=== PATIENT | female | born 1945 | race Caucasian/White ===

== ENCOUNTER 2017-01-08 14:01 | Observation (INO) | payer MEDICARE, MEDICAID ==
[~2017-01-08] VITALS: Ht 167.6 cm; Wt 80.0 kg
[2017-01-08] VITALS (7 sets, daily range): BP systolic 103–127; BP diastolic 52–63; PULSE 52–86; RESP 15–18; TEMP 95.9–98; O2SAT 96–100
[~2017-01-08 14:01] MED LIST: ARIC5TAB PO; BENA20 PO; CYAN100017 PO; HALO1 PO; LORA-392 PO; METF-324 PO; PROBCAP4 PO; QUET25 PO; SERT25TA83 PO; SIMV20 PO; [UNRECOGNIZED DRUG - CODE] IV
[2017-01-08] MEDS ORDERED: LIDOCAINE 1%/EPINEPHrine 1:100,000 SOLN 20 ML VIAL INFIL ONE (14:15)
[2017-01-08] MEDS ORDERED: SODIUM CHLORIDE 0.9% FLUSH 10 ML FLUSH IVF PRN (14:15)
--- NOTE | 2017-01-08 14:25 | PD ---
HPI Chief Complaint: Fall Time Seen by Provider: 14:10 Travel History International Travel<30 days: No Contact w/Intl Traveler<30days: No Traveled to known affect area: No History of Present Illness HPI Patient comes to the emergency department from [facility] [place] after unwitnessed fall per EMS. Patient has a of dementia and when asked why she is here she raises her right middle finger and says "Fuck you" thus limiting H&P. Per EMS patient was cursing most of the way to the hospital. Per EMS patient was walking with a oxygen tank when she fell forwards and this was reported to be unwitnessed. Per EMS one of the workers heard patient fall and found her face down on the ground and incontinent. EMS states when they arrived on scene patient was found to be hypotensive with systolic being in the 80s. This improved after patient received a liter of fluid by EMS. Patient has a history of reported hypotension, osteoarthritis, lack of coordination, hypertension, anxiety, bradycardia, muscle weakness, difficulty walking, depression, dementia , schizoaffective, hyperlipidemia, and diabetes. PFSH Past Medical History Alzheimer's Disease: Yes Arthritis: Yes High Cholesterol: Yes Dementia: Yes Diabetes: Yes Genitourinary: No Hypertension: Yes Musculoskeletal: Yes Neurologic: No Respiratory: No Integumentary: Yes (HX OF CELLULITIS) Sleep Apnea: Yes Social History Alcohol Use: No Tobacco Use: No Substance Use: Yes Allergies-Medications (Allergen,Severity, Reaction): Coded Allergies: No Known Allergies (Verified , 01/15/16) Reported Meds & Prescriptions Reported Meds & Active Scripts Active Ativan (Lorazepam) 0.5 Mg Tab 0.5 Mg PO BID PRN Haldol (Haloperidol) 1 Mg Tab 1 Mg PO BID PRN Quetiapine Fumarate 25 Mg Tab 25 Mg PO BID Ativan 2 Mg Vial/Carpuject (Lorazepam) 2 Mg/Ml Inj 0.5 Mg IV Q8H PRN Probiotic Acidophilus (Acidophilus) Cap 1 Tab PO TIDAC 7 Days Reported B-12 (Cyanocobalamin) 1 000 Cap 1,000 Mcg PO DAILY Lotensin 20 mg (Benazepril HCl) 20 Mg Tab 1 Tab PO DAILY Sertraline 25 mg (Sertraline HCl) 25 Mg Tab 1 Tab PO DAILY Aricept (Donepezil HCl) 5 Mg Tab 10 Mg PO DAILY Glucophage (Metformin HCl) 1,000 Mg Tab 1,000 Mg PO DAILY Zocor (Simvastatin) 20 Mg Tab 20 Mg PO DAILY Review of Systems ROS Limitations: Uncooperative, Poor Historian Except as stated in HPI: all other systems reviewed are Neg Physical Exam Exam Limitations: Poor Historian, Uncooperative Narrative GENERAL: Well-developed, overly nourished, in no acute distress, and non-ill appearing. SKIN: Sutures no right frontal lobe there dry clean intact. No signs of infection. Patient has a laceration over left eyebrow and chin. No foreign body noted. No crepitus. HEAD: Atraumatic. Normocephalic. EYES: Pupils equal and round. EOMI. No scleral icterus. No injection or drainage. ENT: No nasal bleeding or discharge. Patient refuses open her mouth currently this limiting for any oral lacerations or dental fractures. NECK: Trachea midline. C-collar in place. CARDIOVASCULAR: Regular rate and rhythm. No murmur appreciated. RESPIRATORY: No accessory muscle use. No respiratory distress. Clear to auscultation. Breath sounds equal bilaterally. GASTROINTESTINAL: Abdomen soft, non-tender, nondistended, and no guarding. Hepatic and splenic margins not palpable. No pulsatile mass. MUSCULOSKELETAL: No obvious deformities. No clubbing. No cyanosis. No edema. Pelvic stable.Hip: FROM and equal BL with passive flexion, extension, Abduction , Adduction, and internal/external rotation. Dorsal pulses equal BL. NEUROLOGICAL: Awake and alert. No obvious cranial nerve deficits. Normal speech. Data Data Last Documented VS Vital Signs Date Time Temp Pulse Resp B/P (MAP) Pulse Ox O2 Delivery O2 Flow Rate FiO2 01/08/17 17:00 56 15 111/54 (73) 100 Nasal Cannula 2.00 01/08/17 14:05 97.9 Orders Orders Electrocardiogram (01/08/17 14:11) Basic Metabolic Panel (Bmp) (01/08/17 14:11) Complete Blood Count With Diff (01/08/17 14:11) Magnesium (Mg) (01/08/17 14:11) Ckmb (Isoenzyme) Profile (01/08/17 14:11) Troponin I (01/08/17 14:11) Act Partial Throm Time (Ptt) (01/08/17 14:11) Prothrombin Time / Inr (Pt) (01/08/17 14:11) Urinalysis - C+S If Indicated (01/08/17 14:11) Chest, Single Ap (01/08/17 14:11) Ct Brain W/O Iv Contrast(Rout) (01/08/17 14:11) Ct Cerv Spine W/O Contrast (01/08/17 14:11) Ecg Monitoring (01/08/17 14:11) Iv Access Insert/Monitor (01/08/17 14:11) Oximetry (01/08/17 14:11) Sodium Chloride 0.9% Flush (Ns Flush) (01/08/17 14:15) Ct Facial Bones W/O Iv Cont (01/08/17 ) Lidocai-Epi 1%-1:100,000 Inj (Xylocaine- (01/08/17 14:15) Urine Culture (01/08/17 14:23) CKMB (01/08/17 14:20) CKMB% (01/08/17 14:20) Ceftriaxone Inj (Rocephin Inj) (01/08/17 15:15) Lidocai-Epi 2%-1:100,000 Inj (Xylocaine- (01/08/17 15:30) Place In Observation (01/08/17 ) Vital Signs (Adult) Q4H (01/08/17 17:09) Neuro Checks Q4H (01/08/17 17:09) Activity Oob With Assistance (01/08/17 17:09) Bedside Glucose COLLEEN.AC&HS (01/08/17 17:09) Proof Load Mechanic / Telemetry .CONTINUOUS (01/08/17 17:09) Intake + Output COLLEEN.QSHIFT (01/08/17 17:09) Diet 1800 Ada Cons Carb (01/08/17 Dinner) Sodium Chloride 0.9% Flush (Ns Flush) (01/08/17 17:15) Sodium Chloride 0.9% Flush (Ns Flush) (01/08/17 21:00) Basic Metabolic Panel (Bmp) (01/09/17 06:00) Complete Blood Count With Diff (01/09/17 06:00) Resp Oxygen Steve C Titrat 1-4 L (01/08/17 ) Pt Request For Service (01/08/17 17:09) Ot Request For Service (01/08/17 17:09) Speech Therapy Consult-Eval/Tx (01/08/17 17:09) Case Management Consult (01/08/17 17:09) Scd Bilateral/Knee High COLLEEN.BID (01/08/17 17:09) Naloxone Inj (Narcan Inj) (01/08/17 17:15) Docusate Sodium-Senna (Treasure-Colace) (01/08/17 21:00) Magnesium Hydroxide Liq (Milk Of Magnesi (01/08/17 17:15) Sennosides (Senokot) (01/08/17 17:15) Bisacodyl Supp (Dulcolax Supp) (01/08/17 17:15) Lactulose Liq (Lactulose Liq) (01/08/17 17:15) Ceftriaxone Inj (Rocephin Inj) (01/08/17 17:15) Bedside Glucose COLLEEN.AC&HS (01/08/17 17:13) Blood Glucose Goal (Criteria) (01/08/17 17:13) Hypoglycemia 70 Mg/Dl Or < (01/08/17 17:13) Notify Dr: Other (01/08/17 17:13) Dextrose 50% In Олег (Vial) Inj (D50w (Vi (01/08/17 17:15) Glucagon Inj (Glucagon Inj) (01/08/17 17:15) Insulin Aspart Supplemtl Scale (Novolog (01/08/17 21:00) Admit Order (Ed Use Only) (01/08/17 17:31) Labs Laboratory Tests Test 01/08/17 14:20 01/08/17 14:23 White Blood Count 6.8 TH/MM3 Red Blood Count 3.81 MIL/MM3 Hemoglobin 11.9 GM/DL Hematocrit 36.0 % Mean Corpuscular Volume 94.4 FL Mean Corpuscular Hemoglobin 31.2 PG Mean Corpuscular Hemoglobin Concent 33.1 % Red Cell Distribution Width 14.2 % Platelet Count 185 TH/MM3 Mean Platelet Volume 8.4 FL Neutrophils (%) (Auto) 63.1 % Lymphocytes (%) (Auto) 28.5 % Monocytes (%) (Auto) 6.5 % Eosinophils (%) (Auto) 1.6 % Basophils (%) (Auto) 0.3 % Neutrophils # (Auto) 4.3 TH/MM3 Lymphocytes # (Auto) 1.9 TH/MM3 Monocytes # (Auto) 0.4 TH/MM3 Eosinophils # (Auto) 0.1 TH/MM3 Basophils # (Auto) 0.0 TH/MM3 CBC Comment DIFF FINAL Differential Comment Prothrombin Time 11.4 SEC Prothromb Time International Ratio 1.0 RATIO Activated Partial Thromboplast Time 23.5 SEC Blood Urea Nitrogen 21 MG/DL Creatinine 0.86 MG/DL Random Glucose 102 MG/DL Calcium Level 8.0 MG/DL Magnesium Level 1.7 MG/DL Sodium Level 140 MEQ/L Potassium Level 4.3 MEQ/L Chloride Level 104 MEQ/L Carbon Dioxide Level 31.0 MEQ/L Anion Gap 5 MEQ/L Estimat Glomerular Filtration Rate 65 ML/MIN Total Creatine Kinase 104 U/L Creatine Kinase MB 0.8 NG/ML Troponin I LESS THAN 0.02 NG/ML Urine Color YELLOW Urine Turbidity HAZY Urine pH 6.0 Urine Specific [place] 1.027 Urine Protein TRACE mg/dL Urine Glucose (UA) NEG mg/dL Urine Ketones NEG mg/dL Urine Occult Blood TRACE Urine Nitrite NEG Urine Bilirubin NEG Urine Urobilinogen LESS THAN 2.0 MG/DL Urine Leukocyte Esterase LARGE Urine RBC 15 /hpf Urine WBC /hpf Urine Squamous Epithelial Cells 3 /hpf Urine Transitional Epithelial Cells <1 /hpf Urine Amorphous Sediment RARE Urine Bacteria RARE /hpf Urine Hyaline Casts 7 /lpf Urine Mucus FEW /lpf Microscopic Urinalysis Comment CULTURE INDICATED MDM Medical Decision Making Medical Screen Exam Complete: Yes Emergency Medical Condition: Yes Interpretation(s) EKG reviewed by Dr. Guerra shows sinus bradycardia with a ventricular rate 53. Nonspecific ST changes. No STEMI. Chest x-ray read by the radiologist shows: No acute disease. CT head read by the radiologist shows: No acute intracranial injury. CT cervical spine read by the radiologist shows: 1. Degenerative changes as detailed above with areas of neural foraminal narrowing and central canal narrowing. 2. No fracture or dislocation. CT facial bones read by the radiologist shows: No fractures. Differential Diagnosis Syncope, acute coronary syndrome, intracranial hemorrhage, closed head injury, laceration, fracture, electrolyte abnormality, UTI, other Narrative Course Patient was seen and examined. Initial laboratory and radiological studies were ordered. IV access was established. Patient has cardiac monitoring. Patient is reevaluated. Now being more pleasant denies any complaints. Is on uncertain as to why she is here. Discussed the need to repair her laceration and she is okay with this. Explained to the patient that she would be admitted to the hospital. Patient states okay. Dr. Guerra spoke with Dr. Amaya, who is agreeable to admit the patient. Procedures Procedure Narrative LACERATION REPAIR LOCATION: Inferior aspect Chin LENGTH: Approximately 1 cm L-shaped NUMBER OF STITCHES/CAMERON: 1 simple interrupted REPAIR: Verbal consent was obtained. The area of the laceration was cleaned and prepped. The laceration was infiltrated with lidocaine with epi. The wound was copiously irrigated and explored without evidence of foreign body, bony involvement, ligament injury, tendon injury, or neurovascular injury. The wound was closed using 4-0 Vicryl. This was a single layer repair. A sterile dressing was applied by nurse. The patient was advised to keep the affected area as clean and dry as possible using soap and water. There were no complications. Patient tolerated the procedure well. LACERATION REPAIR LOCATION: Left eyebrow LENGTH: Approximately proximally 5 cm in total length cm slightly with Y-shaped and jagged NUMBER OF STITCHES/CAMERON: 7 simple interrupted REPAIR: Verbal consent was obtained. The area of the laceration was cleaned and prepped. The laceration was infiltrated with lidocaine with epi. The wound was copiously irrigated and explored without evidence of foreign body, bony involvement, ligament injury, tendon injury, periosteum involvement, or neurovascular injury. The wound was closed using 4-0 Vicryl. This was a single layer repair. A sterile dressing was applied by nurse. The patient was advised to keep the affected area as clean and dry as possible using soap and water. There were no complications. Patient tolerated the procedure well Diagnosis Primary Impression: Syncope Qualified Codes: R55 - Syncope and collapse Additional Impressions: UTI (urinary tract infection) Qualified Codes: N39.0 - Urinary tract infection, site not specified; R31.9 - Hematuria, unspecified Facial laceration Qualified Codes: S01.81XA - Laceration without foreign body of other part of head, initial encounter Admitting Information Admitting Physician Requests: Observation Condition: Stable Abrahan Glover Jan 08, 2017 14:25
[2017-01-08 14:38] LABS: AUTOMATED NEUTROPHIL # 4.3 TH/MM3 (1.8-7.7); BASOPHIL % 0.3 % (0.0-2.0); EOSINOPHIL # 0.1 TH/MM3 (0-0.4); EOSINOPHIL % 1.6 % (0.0-4.0); HEMO FLAGS DIFF FINAL; LYMPH % 28.5 % (9.0-44.0); LYMPHOCYTE # 1.9 TH/MM3 (1.0-4.8); MEAN CELL VOLUME 94.4 FL (80.0-100.0); MEAN CORPUSCULAR HEMOGLOBIN 31.2 PG (27.0-34.0); MEAN CORPUSCULAR HGB CONC 33.1 % (32.0-36.0); MONO % 6.5 % (0.0-8.0); NEUT % 63.1 % (16.0-70.0); PLATELET COUNT 185 TH/MM3 (150-450); RED BLOOD COUNT 3.81 MIL/MM3 (4.00-5.30); RED CELL DISTRIBUTION WIDTH 14.2 % (11.6-17.2); WHITE BLOOD COUNT 6.8 TH/MM3 (4.0-11.0)
[2017-01-08 14:42] LABS: BACTERIA, URINE RARE /hpf; BLOOD, URINE TRACE (NEG); COMMENT (UR) CULTURE INDICATED; CULTURE IF INDICATED CULTURE INDICATED; GLUCOSE,URINE NEG (NEG); HYALINE CAST, URINE 7 /lpf (RARE); KETONE, URINE NEG (NEG); MUCUS URINE FEW /lpf (OCC); NITRITE,URINE NEG (NEG); SQUAMOUS EPITHELIAL CELL URINE 3 /hpf (0-5); TRANSITIONAL EPI CELLS, URINE <1 /hpf; URINE COLOR YELLOW (YELLW/STRAW)
[2017-01-08 14:45] LABS: APTT (PATIENT) 23.5 SEC (24.3-30.1); PROTHROMBIN TIME - PATIENT 11.4 SEC (9.8-11.6)
[2017-01-08 14:54] LABS: ANION GAP 5 MEQ/L (5-15); BLOOD UREA NITROGEN 21 MG/DL (7-18); CHLORIDE 104 MEQ/L (98-107); GLOMERULAR FILTRATION RATE 65 ML/MIN (>89); MAGNESIUM 1.7 MG/DL (1.5-2.5); POTASSIUM 4.3 MEQ/L (3.5-5.1); SODIUM (NA) 140 MEQ/L (136-145)
[2017-01-08 14:57] LABS: CREATINE KINASE 104 U/L (26-192)
[2017-01-08 15:09] LABS: CKMB 0.8 NG/ML (0.5-3.6)
[2017-01-08] MEDS ORDERED: cefTRIAXone INJ 1,000 MG in SODIUM CHLORIDE 0.9% INJ 100 ML IV ONE (15:15)
[2017-01-08] MEDS ORDERED: LIDOCAINE 2%/EPINEPHrine 1:100,000 20ML MDV NERV BLOCK ONE (15:30)
--- NOTE | 2017-01-08 15:40 | RADRPT ---
EXAM DATE/TIME: 01/08/2017 15:12 [facility] COMPARISON: No previous studies available for comparison. INDICATIONS : Trauma, fall forward today. RADIATION DOSE: 56.35 CTDIvol (mGy) MEDICAL HISTORY : Hypertension. Dementia. diabetes SURGICAL HISTORY : None. ENCOUNTER: Initial ACUITY: 1 day PAIN SCALE: Non-responsive LOCATION: Bilateral head TECHNIQUE: Multiple contiguous axial images were obtained of the head. Using automated exposure control and adj ustment of the mA and/or kV according to patient size, radiation dose was kept as low as reasonably a chievable to obtain optimal diagnostic quality images. DICOM format image data is available electro nically for review and comparison. FINDINGS: There is patchy diminished attenuation in periventricular white matter, most notably in the frontal r egions. No evidence of intracranial mass or hemorrhage. There is nothing to suggest acute infarction. Ventricles are symmetric and normal. A wrap there is left for head scalp swelling and laceration. No evidence of underlying skull fracture. The sinuses and mastoids are clear. CONCLUSION: No acute intracranial injury Keaton Brooks MD on January 08, 2017 at 15:37 Board Certified Radiologist. This report was verified electronically.
--- NOTE | 2017-01-08 15:52 | RADRPT ---
EXAM DATE/TIME: 01/08/2017 14:34 [facility] COMPARISON: No previous studies available for comparison. INDICATIONS : Syncope, fell. MEDICAL HISTORY : None. SURGICAL HISTORY : None. ENCOUNTER: Initial ACUITY: 1 day PAIN SCORE: Non-responsive. LOCATION: Bilateral chest FINDINGS: A single view of the chest demonstrates the lungs to be symmetrically aerated without evidence of mas s, infiltrate or effusion. The cardiomediastinal contours are unremarkable. Osseous structures are intact. CONCLUSION: No acute disease. Bebeto Sloan MD FACR on January 08, 2017 at 15:51 Board Certified Radiologist. This report was verified electronically.
--- NOTE | 2017-01-08 16:07 | RADRPT ---
EXAM DATE/TIME: 01/08/2017 15:12 [facility] COMPARISON: No previous studies available for comparison. INDICATIONS : Trauma, fall forward today. RADIATION DOSE: 26.35 CTDIvol (mGy) MEDICAL HISTORY : hypertension, diabetes, dementia SURGICAL HISTORY : None. ENCOUNTER: Initial ACUITY: 1 day PAIN SCORE: Non-responsive LOCATION: Bilateral face TECHNIQUE: Volumetric scanning of the facial bones was performed. Using automated exposure control and adjustme nt of the mA and/or kV according to patient size, radiation dose was kept as low as reasonably achiev able to obtain optimal diagnostic quality images. DICOM format image data is available [employer] [place] y for review and comparison. FINDINGS: ORBITS: The orbital and infraorbital osseous structures are intact. The retroconal structures have a normal configuration. No radiopaque foreign bodies are seen. NASAL BONE: The nasal bone and maxillary spine are intact ZYGOMATIC ARCHES: Symmetric without evidence of fracture. SINUSES: The maxillary, ethmoid and frontal sinuses are intact. No air-fluid levels seen. NASAL CAVITY: The nasal septum is intact and midline. The lacrimal ducts are intact. SOFT TISSUES: No radiopaque foreign bodies seen. No soft-tissue swelling is seen. INTRACRANIAL: No intracranial air seen. CRIBIFORM PLATE: Grossly intact. CONCLUSION: Negative for fracture. Bebeto Sloan MD FACR on January 08, 2017 at 16:04 Board Certified Radiologist. This report was verified electronically.
--- NOTE | 2017-01-08 16:23 | RADRPT ---
EXAM DATE/TIME: 01/08/2017 15:12 [facility] COMPARISON: No previous studies available for comparison. INDICATIONS : Trauma, fall forward today. RADIATION DOSE: 24.66 CTDIvol (mGy) MEDICAL HISTORY : Hypertension. Dementia. diabetes SURGICAL HISTORY : None. ENCOUNTER: Initial ACUITY: 1 day PAIN SCALE: Non-responsive LOCATION: Bilateral neck TECHNIQUE: Volumetric scanning of the cervical spine was performed. Multiplanar reconstructions in the sagittal, coronal and oblique axial planes were performed. Using automated exposure control and adjustment o f the mA and/or kV according to patient size, radiation dose was kept as low as reasonably achievable to obtain optimal diagnostic quality images. DICOM format image data is available electronically f or review and comparison. FINDINGS: VERTEBRAE: Normal vertebral body height. ALIGNMENT: There is a grade 1 anterolisthesis of C3 on C4. C2-C3: The bony spinal canal is normal in size. No evidence of disc bulge or herniation. The neural forami na are bilaterally patent. Bony uncovertebral hypertrophy more pronounced on the right. C3-C4: There is a broad-based disc osteophyte complex. Prominent bony uncovertebral hypertrophy which is mor e abundant on the left. Narrowing of the left lateral recess. Right lateral recess and central canal are patent. Severe narrowing of the left neural foramen with mild narrowing on the right. C4-C5: Broad-based disc bulge which just touches the ventral portion of the cord. Bony uncovertebral hypertr ophy which is more abundant on the right. Narrowing of the lateral recesses bilaterally. Mild narrowi ng of the right neural foramen. The left is patent. C5-C6: A broad-based disc osteophyte complex with flattening of the ventral portion of the cord and effaceme nt of both lateral recesses. Bony uncovertebral hypertrophy with moderate bilateral neural foraminal narrowing. C6-C7: A broad-based disc osteophyte complex with flattening of the ventral portion of the cord and effaceme nt of both lateral recesses. Bony uncovertebral hypertrophy with moderate bilateral neural foraminal narrowing. C7-T1: The bony spinal canal is normal in size. No evidence of disc bulge or herniation. The neural forami na are bilaterally patent. Calcified plaque involving the carotid arteries bilaterally. CONCLUSION: 1. Degenerative changes as detailed above with areas of neural foraminal narrowing and central canal narrowing. 2. No fracture or dislocation. Carlos Benitez Jr., MD on January 08, 2017 at 16:17 Board Certified Radiologist. This report was verified electronically.
[2017-01-08] MEDS ORDERED: MAGNESIUM HYDROXIDE SUSP 30 ML CUP PO PRN (17:15)
[2017-01-08] MEDS ORDERED: LACTULOSE SYRUP 20 GM/30 ML CUP PO PRN (17:15)
[2017-01-08] MEDS ORDERED: NALOXONE HCL 0.4 MG/ML AMP IV PRN (17:15)
[2017-01-08] MEDS ORDERED: BISACODYL 10 MG SUPP RECTAL PRN (17:15)
[2017-01-08] MEDS ORDERED: SODIUM CHLORIDE 0.9% FLUSH 10 ML FLUSH IV FLUSH PRN (17:15)
[2017-01-08] MEDS ORDERED: DEXTROSE 50% IN WATER 50 ML VIAL(D50) IV PRN (17:15)
[2017-01-08] MEDS ORDERED: GLUCAGON 1 MG/ML VIAL OTHER PRN (17:15)
[2017-01-08] MEDS ORDERED: SENNOSIDES 8.6 MG TAB PO PRN (17:15)
--- NOTE | 2017-01-08 18:11 | HHI.HP ---
[facility] Service [place] [facility] Primary Care Physician Unknown Admission Diagnosis syncope, UTI, facial lacerations Diagnoses: (1) UTI (urinary tract infection) Diagnosis: Principal (2) Syncope Diagnosis: Principal (3) Dementia Diagnosis: Secondary (4) inability to care for self Diagnosis: Secondary Chief Complaint: Syncope Travel History International Travel<30 Days: No Contact w/Intl Traveler <30 Da: No Traveled to Known Affected Are: No History of Present Illness Ms. Ugarte is a 71-year-old female with a known medical history of dementia, dyslipidemia, diabetes and hypertension who presented to the ED via [facility] due to unwitnessed fall. Patient is a poor historian and the history was obtained from medical records and [facility] report. Per ED report patient was supposedly belligerent and agitated with ED medical staff upon arrival and presented with underlying confusion with dementia. Patient sustained an unwitnessed fall while walking with [facility] personnel with apparent syncope and associated incontinence. Supposedly patient was hypotensive on arrival and status post 1L NS bolus with resolution of BP. At this time patient is somnolent while assessed, minimal verbalization and questionable orientation. Patient states her full name but will not verbalize year, place or situation. Apparent facial lacerations noted that have been sutured by ED PACandis CALL at this time. Imaging studies unremarkable. UTI present. EKG done with no ST changes indicating ischemia, sinus bradycardia with HR in the 50's. Patient was found to have urinary tract infection also. Noted to have some sinus bradycardia. We'll get echocardiograms carotids physical therapy and occupational therapy Will need placement back in SNF at discharge Review of Systems ROS Limitations: Altered Mental Status, Poor Historian Past Family Social History Past Medical History Alzhemer's dementia Arthritis Dyslipidemia Type 2 diabetes mellitus Hypertension Sleep Apnea Past Surgical History Unable to obtain information, patient a poor historian, minimal verbalization. Reported Medications Active Ativan (Lorazepam) 0.5 Mg Tab 0.5 Mg PO BID PRN Haldol (Haloperidol) 1 Mg Tab 1 Mg PO BID PRN Quetiapine Fumarate 25 Mg Tab 25 Mg PO BID Ativan 2 Mg Vial/Carpuject (Lorazepam) 2 Mg/Ml Inj 0.5 Mg IV Q8H PRN Probiotic Acidophilus (Acidophilus) Cap 1 Tab PO TIDAC 7 Days Reported B-12 (Cyanocobalamin) 1 000 Cap 1,000 Mcg PO DAILY Lotensin 20 mg (Benazepril HCl) 20 Mg Tab 1 Tab PO DAILY Sertraline 25 mg (Sertraline HCl) 25 Mg Tab 1 Tab PO DAILY Aricept (Donepezil HCl) 5 Mg Tab 10 Mg PO DAILY Glucophage (Metformin HCl) 1,000 Mg Tab 1,000 Mg PO DAILY Zocor (Simvastatin) 20 Mg Tab 20 Mg PO DAILY Allergies: Coded Allergies: No Known Allergies (Verified , 01/15/16) Active Ordered Medications Current Medications Medications (Trade) Dose Ordered Sig/Roland Route Start Time Stop Time Status Last Admin (NS Flush) 2 ml UNSCH PRN IVF 01/08/17 14:15 (NS Flush) 2 ml UNSCH PRN IV FLUSH 01/08/17 17:15 UNV (NS Flush) 2 ml BID IV FLUSH 01/08/17 21:00 UNV (Narcan Inj) 0.4 mg UNSCH PRN IV 01/08/17 17:15 UNV (Treasure-Colace) 1 tab BID PO 01/08/17 21:00 UNV (Milk Of Magnesia Liq) 30 ml Q12H PRN PO 01/08/17 17:15 UNV (Senokot) 17.2 mg Q12H PRN PO 01/08/17 17:15 UNV (Dulcolax Supp) 10 mg DAILY PRN RECTAL 01/08/17 17:15 UNV (Lactulose Liq) 30 ml DAILY PRN PO 01/08/17 17:15 UNV Ceftriaxone Sodium 1000 mg/ Sodium Chloride 100 ml @ 200 mls/hr Q24H IV 01/08/17 17:15 UNV (D50w (Vial) Inj) 50 ml UNSCH PRN IV 01/08/17 17:15 UNV (Glucagon Inj) 1 mg UNSCH PRN OTHER 01/08/17 17:15 UNV (NovoLOG SUPPLEMENTAL SCALE) 1 ACHS SLIDING SCALE SQ 01/08/17 21:00 UNV Family History Unable to obtain information, patient a poor historian, minimal verbalization. Social History Lives at [facility]. Unable to obtain social information, patient a poor historian, minimal verbalization. Physical Exam Vital Signs Vital Signs Date Time Temp Pulse Resp B/P (MAP) Pulse Ox O2 Delivery O2 Flow Rate FiO2 01/08/17 17:00 56 15 111/54 (73) 100 Nasal Cannula 2.00 01/08/17 15:04 62 17 127/63 (84) 99 Nasal Cannula 2.00 01/08/17 14:34 52 17 115/57 (76) 99 Nasal Cannula 2.00 01/08/17 14:05 97.9 86 16 116/59 (78) 97 Physical Exam GENERAL: This is a well-nourished, well-developed patient, lying in bed somnolent, minimal verbalization. SKIN: Multiple facial lacerations above left eye, sutured. Previous right eye laceration, with sutures in place. HEAD: Atraumatic. Normocephalic. No temporal or scalp tenderness. EYES: Pupils equal round and reactive. Extraocular motions intact. No scleral icterus. No injection or drainage. ENT: Nose without bleeding, purulent drainage or septal hematoma. Airway patent. NECK: Trachea midline. No JVD. Supple. CARDIOVASCULAR: Sinus bradycardic. No murmur appreciated. S1 and S2 noted. No S3 or S4. RESPIRATORY: Clear to auscultation. Breath sounds equal bilaterally. No wheezes , rales, or rhonchi. GASTROINTESTINAL: Abdomen soft, non-tender, nondistended. No guarding. Bowel sounds active x 4. MUSCULOSKELETAL: Extremities without clubbing, cyanosis, or edema. No joint tenderness. Bilateral lower extremity edema, 1+. NEUROLOGICAL: Somnolent. Questionable orientation. Motor and sensory grossly within normal limits. Four out of 5 muscle strength in all muscle groups. Minimal verbalization. Laboratory Laboratory Tests Test 01/08/17 14:20 01/08/17 14:23 White Blood Count 6.8 Red Blood Count 3.81 Hemoglobin 11.9 Hematocrit 36.0 Mean Corpuscular Volume 94.4 Mean Corpuscular Hemoglobin 31.2 Mean Corpuscular Hemoglobin Concent 33.1 Red Cell Distribution Width 14.2 Platelet Count 185 Mean Platelet Volume 8.4 Neutrophils (%) (Auto) 63.1 Lymphocytes (%) (Auto) 28.5 Monocytes (%) (Auto) 6.5 Eosinophils (%) (Auto) 1.6 Basophils (%) (Auto) 0.3 Neutrophils # (Auto) 4.3 Lymphocytes # (Auto) 1.9 Monocytes # (Auto) 0.4 Eosinophils # (Auto) 0.1 Basophils # (Auto) 0.0 CBC Comment DIFF FINAL Differential Comment Prothrombin Time 11.4 Prothromb Time International Ratio 1.0 Activated Partial Thromboplast Time 23.5 Blood Urea Nitrogen 21 Creatinine 0.86 Random Glucose 102 Calcium Level 8.0 Magnesium Level 1.7 Sodium Level 140 Potassium Level 4.3 Chloride Level 104 Carbon Dioxide Level 31.0 Anion Gap 5 Estimat Glomerular Filtration Rate 65 Total Creatine Kinase 104 Creatine Kinase MB 0.8 Troponin I LESS THAN 0.02 Urine Color YELLOW Urine Turbidity HAZY Urine pH 6.0 Urine Specific [place] 1.027 Urine Protein TRACE Urine Glucose (UA) NEG Urine Ketones NEG Urine Occult Blood TRACE Urine Nitrite NEG Urine Bilirubin NEG Urine Urobilinogen LESS THAN 2.0 Urine Leukocyte Esterase LARGE Urine RBC 15 Urine WBC Urine Squamous Epithelial Cells 3 Urine Transitional Epithelial Cells <1 Urine Amorphous Sediment RARE Urine Bacteria RARE Urine Hyaline Casts 7 Urine Mucus FEW Microscopic Urinalysis Comment CULTURE INDICATED Date/Time Source Procedure Growth Status 01/08/17 14:23 Urine Random Urine Urine Culture Pending Received Result Diagram: 01/08/17 1420 01/08/17 1420 Imaging Last Impressions Head CT 01/08/171410 Signed Impressions: Service Date/Time: Sunday, January 08, 2017 15:12 - CONCLUSION: No acute intracranial injury Keaton Brooks MD Chest X-Ray 01/08/171410 Signed Impressions: Service Date/Time: Sunday, January 08, 2017 14:34 - CONCLUSION: No acute disease. Bebeto Sloan MD FACR Cervical Spine CT 01/08/17 1411 Signed Impressions: Service Date/Time: Sunday, January 08, 2017 15:12 - CONCLUSION: 1. Degenerative changes as detailed above with areas of neural foraminal narrowing and central canal narrowing. 2. No fracture or dislocation. Carlos Benitez Jr., MD Maxillofacial CT 01/08/17 0000 Signed Impressions: Service Date/Time: Sunday, January 08, 2017 15:12 - CONCLUSION: Negative for fracture. Bebeto Sloan MD FACR Septic Shock Reassessment Lungs: Clear Peripheral Pulses: Bounding Right Radial Bounding Left Radial Bounding Right Popliteal Bounding Left Popliteal Caprini VTE Risk Assessment Caprini VTE Risk Assessment: No/Low Risk (score <= 1) Caprini Risk Assessment Model Point Value = 1 Point Value = 2 Point Value = 3 Point Value = 5 Age 41-60 Minor surgery BMI > 25 kg/m2 Swollen legs Varicose veins or History of unexplained or recurrent spontaneous Oral contraceptives or hormone replacement Sepsis (< 1 month) Serious lung disease, including pneumonia (< 1 month) Abnormal pulmonary function Acute myocardial infarction Congestive heart failure (< 1 month) History of inflammatory bowel disease Medical patient at bed rest Age 61-74 Arthroscopic surgery Major open surgery (> 45 min) Laparoscopic surgery (> 45 min) Malignancy Confined to bed (> 72 hours) Immobilizing plaster cast Central venous access Age >= 75 History of VTE Family history of VTE Factor V Leiden Prothrombin [id number] Lupus anticoagulant Anticardiolipin antibodies Elevated serum homocysteine Heparin-induced thrombocytopenia Other congenital or acquired thrombophilia Stroke (< 1 month) Elective arthroplasty Hip, pelvis, or leg fracture Acute spinal cord injury (< 1 month) Prophylaxis Regimen Total Risk Factor Score Risk Level Prophylaxis Regimen 0-1 Low Early ambulation 2 Moderate Order ONE of the following: *Sequential Compression Device (SCD) *Heparin 5000 units SQ BID 3-4 Higher Order ONE of the following medications: *Heparin 5000 units SQ TID *Enoxaparin/Lovenox 40 mg SQ daily (WT < 150 kg, CrCl > 30 mL/min) *Enoxaparin/Lovenox 30 mg SQ daily (WT < 150 kg, CrCl > 10-29 mL/min) *Enoxaparin/Lovenox 30 mg SQ BID (WT < 150 kg, CrCl > 30 mL/min) AND/OR *Sequential Compression Device (SCD) 5 or more Highest Order ONE of the following medications: *Heparin 5000 units SQ TID (Preferred with Epidurals) *Enoxaparin/Lovenox 40 mg SQ daily (WT < 150 kg, CrCl > 30 mL/min) *Enoxaparin/Lovenox 30 mg SQ daily (WT < 150 kg, CrCl > 10-29 mL/min) *Enoxaparin/Lovenox 30 mg SQ BID (WT < 150 kg, CrCl > 30 mL/min) AND *Sequential Compression Device (SCD) Assessment and Plan Assessment and Plan Ms. Shanel is a 71-year-old female with a known medical history of dementia, dyslipidemia, diabetes and hypertension who presented to the ED via [facility] due to unwitnessed fall. Patient is a poor historian and the history obtained from medical records and [facility] report. At this time patient is somnolent while assessed, minimal verbalization and questionable orientation. Patient states her full name but will not verbalize year, place or situation. Apparent facial lacerations noted that have been sutured by ED PA. VSS at this time. Imaging studies unremarkable. UTI present. EKG done with no ST changes indicating ischemia, sinus bradycardia with HR in the 50's. Syncope Multiple facial lacerations secondary to fall - Maxillofacial CT, head CT, chest x-ray and cervical spine CT all reviewed and unremarkable with degenerative changes noted on cervical spine CT. - EKG reviewed showing sinus bradycardia. Initial troponin flat. - US of bilateral carotids ordered. Follow. - 2-D ECHO ordered and pending. Follow. No previous study found in EMR. - TSH, free T4, hemoglobin A1c and lipid profile ordered. - Continue cardiac telemetry. Patient sinus bradycardic with HR in 50's in ED. - Facial lacerations sutured in ED by PA. - CBC and BMP reviewed and unremarkable. Will repeat in am. Follow. - PT consulted, please evaluate and treat. CM consulted for dc recommendations. Appreciate input. Type 2 diabetes, chronic - ACCU checks ACHS. Sliding scale insulin, cover as needed. Will hold Metformin for now, random glucose 102. Will monitor. Hemoglobin A1c ordered, follow. - [address] ordered, swallow evaluation. Urinary tract infection - UA showing large amount of leukocyte esterase and innumerable WBCs. Urine culture pending. Will follow. For now placed on Rocephin 1 g IV qD. Follow cultures. WBC WNL. Afebrile. - Fallon catheter for now, will reassess mentation in AM. Monitor I&O. Dyslipidemia: Continue home Simvastatin. Hypertension, chronic: Will hold home BP meds for now, initially hypotensive. Monitor BP. Alzheimer's dementia, chronic: Continue home Aricept. DVT Prophylaxis: SCDs. Patient high risk for falls, will hold chemical prophylaxis at this time. The exam, history, and the medical decision-making described in the above note were completed with the assistance of the mid-level provider. I reviewed and agree with the findings presented. I attest that I had a [id number] encounter with the patient on the same day, and personally performed and documented my assessment and findings in the medical record. Code Status FULL CODE Discussed Condition With [facility] ER physician ER nurse and patient Problem Qualifiers (1) UTI (urinary tract infection): Qualified Codes: N39.0 - Urinary tract infection, site not specified; R31.9 - Hematuria, unspecified (2) Syncope: Qualified Codes: R55 - Syncope and collapse Zhanna Cordova [facility] Jan 08, 2017 18:11 Bebeto Amaya DO Jan 08, 2017 18:29
[2017-01-08] MEDS ORDERED: PILL SPLITTER OTHER PRN (19:15)
--- NOTE | 2017-01-08 19:38 | RADRPT ---
EXAM DATE/TIME: 01/08/2017 18:08 [place] COMPARISON: No previous studies available for comparison. INDICATIONS : Syncope. MEDICAL HISTORY : Hypercholesterolemia. Hypertension. Arthritis. Dementia. Sleep apnea. Hyperlipidemia. Bradycardia. An xiety. Osteoarthritis. SURGICAL HISTORY : None. ENCOUNTER: Initial ACUITY: 1 day PAIN SCORE: 0/10 LOCATION: Bilateral neck PEAK SYSTOLIC VELOCITIES (cm/sec): ICA/CCA RATIO: Right: 1.3 Left: 1.4 ICA: Right: 74 Left: 94 CCA: Right: 71 Left: 91 ECA: Right: 141 Left: 68 VERTEBRAL: Right: 46 antegrade Left: 36 antegrade Elevated flow velocities and ICA/CCA ratios have been found to correlate with increased degrees of vessel stenosis, calculated as percentage of diameter relative to a normal segment of distal ICA/CCA FINDINGS: RIGHT CAROTID: There is mild plaque in the carotid bulb regions bilaterally. No significant stenosis is visualized. The waveforms are within normal limits. LEFT CAROTID: There is mild plaque in the carotid bulb regions bilaterally. No significant stenosis is visualized. The waveforms are within normal limits. VERTEBRAL ARTERIES: Antegrade flow is seen in both vertebral arteries. MISCELLANEOUS: None. CONCLUSION: Mild plaque of the carotid bulb regions without a hemodynamically significant stenosis seen. Keaton Mauro MD on January 08, 2017 at 19:35 Board Certified Radiologist. This report was verified electronically.
[2017-01-08 20:49] LABS: FREE T4 0.98 NG/DL (0.76-1.46); HDL CHOLESTEROL 57.8 MG/DL (40.0-60.0); LDL CHOLESTEROL 51 MG/DL (0-99)
[2017-01-08] MEDS: INSULIN ASPART SUPPLEMENTAL SCALE SQ SCH (21:00)
[2017-01-08] MEDS: SODIUM CHLORIDE 0.9% FLUSH 10 ML FLUSH IV FLUSH SCH (22:25)
[2017-01-08] MEDS: QUEtiapine FUMARATE 25 MG TAB PO SCH (22:26)
[2017-01-08] MEDS: DOCUSATE SODIUM 50 MG/SENNA 8.6 MG TAB PO SCH (22:26)
[2017-01-09] VITALS (12 sets, daily range): BP systolic 91–129; BP diastolic 54–67; PULSE 48–67; RESP 14–18; TEMP 96.8–98.5; O2SAT 95–100
[2017-01-09 06:05] LABS: AUTOMATED NEUTROPHIL # 3.5 TH/MM3 (1.8-7.7); BASOPHIL % 0.4 % (0.0-2.0); EOSINOPHIL # 0.1 TH/MM3 (0-0.4); EOSINOPHIL % 2.2 % (0.0-4.0); HEMATOCRIT 34.9 % (35.0-46.0); HEMO FLAGS DIFF FINAL; LYMPH % 32.9 % (9.0-44.0); MEAN CELL VOLUME 94.8 FL (80.0-100.0); MEAN CORPUSCULAR HEMOGLOBIN 30.9 PG (27.0-34.0); MEAN CORPUSCULAR HGB CONC 32.6 % (32.0-36.0); MONO % 7.7 % (0.0-8.0); NEUT % 56.8 % (16.0-70.0); PLATELET COUNT 167 TH/MM3 (150-450); RED BLOOD COUNT 3.68 MIL/MM3 (4.00-5.30); RED CELL DISTRIBUTION WIDTH 13.7 % (11.6-17.2); WHITE BLOOD COUNT 6.2 TH/MM3 (4.0-11.0)
[2017-01-09 06:29] LABS: BICARBONATE 29.4 MEQ/L (21.0-32.0)
[2017-01-09] MEDS: INSULIN ASPART SUPPLEMENTAL SCALE SQ SCH ×4 (07:00→20:48)
--- NOTE | 2017-01-09 09:11 | EKG ---
Date Performed: 01/08/2017 Time Performed: 14:47:40 PTAGE: 71 years EKG: SINUS BRADYCARDIA WITH FIRST DEGREE AV BLOCK ABNORMAL ECG NO PREVIOUS TRACING DOCTOR: Xavier Kumar Interpretating Date/Time 01/09/2017 09:08:59
--- NOTE | 2017-01-09 10:17 | HHI.PR ---
Subjective Remarks Follow-up for fall, syncope. The patient is awake, alert, sitting upright in bed, however non-conversational. She was asked multiple questions however would just stare at me with a blank stare. She did say "ow" when I palpated her legs, then I asked her if my hands were cold and she said "yeah". She would not answer any further questions and would not tell me her name. She followed simple commands such as wiggling toes but would not squeeze hands. Objective Vitals Vital Signs Date Time Temp Pulse Resp B/P (MAP) Pulse Ox O2 Delivery O2 Flow Rate FiO2 01/09/17 08:20 95 Nasal Cannula 2.00 01/09/17 07:55 97.8 57 14 91/54 (66) 96 01/09/17 04:38 96.8 54 18 108/55 (72) 96 01/09/17 04:00 48 01/09/17 02:14 60 01/08/17 23:46 95.9 53 119/57 (77) 96 01/08/17 20:44 98.0 58 18 103/52 (69) 100 01/08/17 19:30 100 Nasal Cannula 2.00 01/08/17 18:50 01/08/17 17:00 56 15 111/54 (73) 100 Nasal Cannula 2.00 01/08/17 15:04 62 17 127/63 (84) 99 Nasal Cannula 2.00 01/08/17 14:34 52 17 115/57 (76) 99 Nasal Cannula 2.00 01/08/17 14:05 97.9 86 16 116/59 (78) 97 I/O 01/08/17 01/08/17 01/08/17 01/09/17 01/09/17 01/09/17 06:59 14:59 22:59 06:59 14:59 22:59 Intake Total 230 ml 100 ml Output Total 550 ml Balance -320 ml 100 ml Intake Oral 230 ml IV Total 100 ml Output Urine Total 550 ml Result Diagram: 01/09/1752201/09/17522 Imaging Last Impressions Head CT 01/08/171 Signed Impressions: Service Date/Time: Sunday, January 08, 2017 15:12 - CONCLUSION: No acute intracranial injury Keaton Brooks MD Chest X-Ray 01/08/17 1411 Signed Impressions: Service Date/Time: Sunday, January 08, 2017 14:34 - CONCLUSION: No acute disease. Bebeto Sloan MD FACR Cervical Spine CT 01/08/17 1411 Signed Impressions: Service Date/Time: Sunday, January 08, 2017 15:12 - CONCLUSION: 1. Degenerative changes as detailed above with areas of neural foraminal narrowing and central canal narrowing. 2. No fracture or dislocation. Carlos Benitez Jr., MD Maxillofacial CT 01/08/17 0000 Signed Impressions: Service Date/Time: Sunday, January 08, 2017 15:12 - CONCLUSION: Negative for fracture. Bebeto Sloan MD FACR Carotid Artery Ultrasound 01/08/17 0000 Signed Impressions: Service Date/Time: Sunday, January 08, 2017 18:08 - CONCLUSION: Mild plaque of the carotid bulb regions without a hemodynamically significant stenosis seen. Keaton Mauro MD Objective Remarks GENERAL: Well-nourished, well-developed patient in NAD. SKIN: Warm and dry. No rash. HEAD: Normocephalic. Atraumatic. Left brow laceration s/p repair with sutures. Chin with laceration s/p repair with suture x1. EYES: Pupils equal and round. No scleral icterus. No injection or drainage. ENT: No nasal bleeding or discharge. Mucous membranes pink and moist. NECK: Supple. Trachea midline. CARDIOVASCULAR: Mildly bradycardic, regular rhythm. S1, S2 noted. No murmur appreciated. RESPIRATORY: No accessory muscle use. Clear to auscultation. Breath sounds equal bilaterally. GASTROINTESTINAL: Abdomen soft, non-tender, nondistended. Normoactive bowel sounds x4. MUSCULOSKELETAL: No obvious deformities. 1+ bilateral lower extremity edema. Calves nontender bilaterally. NEUROLOGICAL: Awake and alert. No obvious cranial nerve deficits. Motor grossly within normal limits. Moving all extremities spontaneously. Unable to clearly assess speech as patient is mostly nonverbal. PSYCHIATRIC: Appropriate mood and affect; insight and judgment poor. Procedures 01/08 - Eyebrow and chin laceration repair in the ED Medications and IVs Current Medications Medications (Trade) Dose Ordered Sig/Roland Route Start Time Stop Time Status Last Admin (NS Flush) 2 ml UNSCH PRN IV FLUSH 01/08/17 17:15 (NS Flush) 2 ml BID IV FLUSH 01/08/17 21:00 01/08/17 22:25 (Narcan Inj) 0.4 mg UNSCH PRN IV 01/08/17 17:15 (Treasure-Colace) 1 tab BID PO 01/08/17 21:00 01/08/17 22:26 (Milk Of Magnesia Liq) 30 ml Q12H PRN PO 01/08/17 17:15 (Senokot) 17.2 mg Q12H PRN PO 01/08/17 17:15 (Dulcolax Supp) 10 mg DAILY PRN RECTAL 01/08/17 17:15 (Lactulose Liq) 30 ml DAILY PRN PO 01/08/17 17:15 Ceftriaxone Sodium 1000 mg/ Sodium Chloride 100 ml @ 200 mls/hr Q24H IV 01/09/17 16:00 (D50w (Vial) Inj) 50 ml UNSCH PRN IV 01/08/17 17:15 (Glucagon Inj) 1 mg UNSCH PRN OTHER 01/08/17 17:15 (NovoLOG SUPPLEMENTAL SCALE) 1 ACHS SLIDING SCALE SQ 01/08/17 21:00 (Aricept) 10 mg DAILY PO 01/09/17 09:00 (SEROquel) 25 mg BID PO 01/08/17 21:00 01/08/17 22:26 (Vitamin B12) 1,000 mcg DAILY PO 01/09/17 09:00 (Lactinex) 1 tab TIDAC PO 01/09/17 08:00 (Zoloft) 25 mg DAILY PO 01/09/17 09:00 (Pravachol) 40 mg DAILY PO 01/09/17 09:00 (Pill Splitter) 1 ea UNSCH PRN OTHER 01/08/17 19:15 (Pneumovax-23 Inj) 25 mcg ONCE ONCE IM 01/10/17 10:00 01/10/17 10:01 A/P Problem List: (1) UTI (urinary tract infection) ICD Code: N39.0 - Urinary tract infection, site not specified (2) Syncope ICD Code: R55 - Syncope and collapse (3) Dementia ICD Code: F03.90 - Unspecified dementia without behavioral disturbance Status: Acute (4) inability to care for self Status: Acute Assessment and Plan 71-year-old female with history of dementia, HTN, HLD, DM, presents via [facility] due to unwitnessed fall. Patient is a poor historian and the history obtained from medical records and EV[facility] report. At this time patient is somnolent while assessed, minimal verbalization and questionable orientation. Facial lacerations noted that have been sutured by ED PA. Imaging studies unremarkable. UTI present. Syncope, Multiple facial lacerations secondary to fall: Suspect secondary to hypotension, BP in 90s/50s. Maxillofacial CT, head CT, CXR and C-spine CT all reviewed and unremarkable with degenerative changes noted on cervical spine CT. EKG reviewed showing sinus bradycardia. Initial troponin flat. TSH, T4, Lipid panel wnl. CBC/BMP unremarkable. - Carotid U/S unremarkable, no significant stenosis - Echocardiogram pending - Check EEG with reported incontinence and unwitnessed fall - Continue cardiac telemetry. Patient sinus bradycardic with HR in 50's. - Facial lacerations sutured in ED by KARYN on 01/08, have removed in ~5days. Clean with NS, apply mupirocin ointment. - PT consulted, patient needs to return to SNF at discharge. Type 2 diabetes, chronic - ACCU checks ACHS. Sliding scale insulin, cover as needed. Hold Metformin for now, random glucose 102. - Hemoglobin A1c pending - [address] ordered, swallow evaluation. Urinary tract infection - UA showing large amount of leukocyte esterase and innumerable WBCs. - Urine culture pending. Will follow. - Continue IV Rocephin - Fallon catheter for now. Monitor I&O. Dyslipidemia: Continue home Simvastatin. Hypertension, chronic: Will hold home BP meds for now, initially hypotensive. Monitor BP. Alzheimer's dementia, chronic: Continue home Aricept. DVT Prophylaxis: SCDs. Patient high risk for falls, will hold chemical prophylaxis at this time. Discharge Planning Discharge pending echo, EEG, and further clinical improvement. Problem Qualifiers (1) UTI (urinary tract infection): Qualified Codes: N39.0 - Urinary tract infection, site not specified; R31.9 - Hematuria, unspecified (2) Syncope: Qualified Codes: R55 - Syncope and collapse Katherine Chandler PA-C Jan 09, 2017 10:17
[2017-01-09] MEDS: DONEPEZIL HCL 5 MG TAB PO SCH (11:06)
[2017-01-09] MEDS: SERTRALINE HCL 50 MG TAB PO SCH (11:06)
[2017-01-09] MEDS: LACTOBACILLUS ACIDOPHILUS TAB PO SCH ×3 (11:06→19:28)
[2017-01-09] MEDS: CYANOCOBALAMIN 1,000 MCG TAB PO SCH (11:06)
[2017-01-09] MEDS: DOCUSATE SODIUM 50 MG/SENNA 8.6 MG TAB PO SCH ×2 (11:06→20:47)
[2017-01-09] MEDS: SODIUM CHLORIDE 0.9% FLUSH 10 ML FLUSH IV FLUSH SCH ×2 (11:06→20:48)
[2017-01-09] MEDS: PRAVASTATIN SOD 40 MG TAB PO SCH (11:06)
[2017-01-09] MEDS: QUEtiapine FUMARATE 25 MG TAB PO SCH ×2 (11:07→20:48)
[2017-01-09 12:36] LABS: HEMOGLOBIN A1b 1.8 %; HEMOGLOBIN Ao 84.6 %; HEMOGLOBIN LA1C 2.1 %; HEMOGLOBIN P3 5.7 %
[2017-01-09] MEDS: MUPIROCIN 2% OINT 22 GM TUBE TOPICAL SCH ×2 (15:06→20:48)
[2017-01-09] MEDS: cefTRIAXone INJ 1,000 MG in SODIUM CHLORIDE 0.9% INJ 100 ML IV SCH (15:06)
--- NOTE | 2017-01-09 15:26 | ECHRPT ---
Indication: SYNCOPE CONCLUSIONS Normal left ventricular size. Wall thickness is normal. The left ventricular systolic function is low normal with an estimated ejection fraction in the rang e of 50- 55%. No regional wall motion abnormalities are present. The right ventricle is mildly dilated. The left atrial size is normal. The right atrial size is normal The interatrial septum not well visualized. Mild mitral valve regurgitation. Aortic valve sclerosis is present. [id number]-[id number] aortic valve regurgitation. No aortic valve stenosis. There is trace tricuspid valve regurgitation. Normal estimated pulmonary pressures. Trivial pulmonary valve regurgitation. The inferior vena cava (IVC) is normal in size. There is less than 50% respiratory change in dimension of the inferior vena cava (abnormal). BP: 91 / 54 HR: 57 Rhythm: Sinus MEASUREMENTS (Male / Female) Normal Values Technical Quality:Fair 2D ECHO LV Diastolic Diameter PLAX 3.9 cm 4.2 - 5.9 / 3.9 - 5.3 cm LV Systolic Diameter PLAX 3.1 cm IVS Diastolic Thickness 0.9 cm 0.6 - 1.0 / 0.6 - 0.9 cm LVPW Diastolic Thickness 1.0 cm 0.6 - 1.0 / 0.6 - 0.9 cm LV Relative Wall Thickness 0.5 LVOT Diameter 2.2 cm Aortic Root Diameter 3.2 cm LA Systolic Diameter LX 3.5 cm 3.0 - 4.0 / 2.7 - 3.8 cm M-MODE AV Cusp Separation MM 2.3 cm DOPPLER AV Peak Velocity 135.0 cm/s AV Peak Gradient 7.3 mmHg AV Mean Gradient 4.0 mmHg AV Velocity Time Integral 32.6 cm AI Peak Velocity 410.0 cm/s AI Peak Gradient 67.2 mmHg AI Pressure Half Time 873.0 ms LVOT Peak Velocity 93.2 cm/s LVOT Peak Gradient 3.5 mmHg LVOT Velocity Time Integral 21.9 cm LVOT Cardiac Index 2435.3 cm/minm AV Area Cont Eq vti 2.6 cm AV Area Cont Eq pk 2.6 cm Mitral E Point Velocity 71.6 cm/s Mitral A Point Velocity 63.2 cm/s Mitral E to A Ratio 1.1 LV E' Lateral Velocity 15.9 cm/s Mitral E to LV E' Lateral Ratio 4.5 LV E' Septal Velocity 7.5 cm/s Mitral E to LV E' Septal Ratio 9.5 TR Peak Velocity 264.0 cm/s TR Peak Gradient 27.9 mmHg PV Peak Velocity 47.4 cm/s PV Peak Gradient 0.9 mmHg FINDINGS LEFT VENTRICLE Normal left ventricular size. Wall thickness is normal. The left ventricular systolic function is low normal with an estimated ejection fraction in the rang e of 50- 55%. No regional wall motion abnormalities are present. Left ventricular diastolic function parameters are normal. RIGHT VENTRICLE The right ventricle is mildly dilated. LEFT ATRIUM The left atrial size is normal. RIGHT ATRIUM The right atrial size is normal. ATRIAL SEPTUM The interatrial septum not well visualized. AORTA The aortic root and proximal ascending aorta are normal in size on limited imaging. MITRAL VALVE Structurally normal mitral valve. Mild mitral valve regurgitation. AORTIC VALVE Trileaflet aortic valve. Aortic valve sclerosis is present. Eyhp-fy-[id number] aortic valve regurgitation. No aortic valve stenosis. TRICUSPID VALVE Structurally normal tricuspid valve. There is trace tricuspid valve regurgitation. Normal estimated pulmonary pressures. PULMONARY VALVE Trivial pulmonary valve regurgitation. VESSELS The inferior vena cava (IVC) is normal in size. There is less than 50% respiratory change in dimension of the inferior vena cava (abnormal). PERICARDIUM No pericardial effusion. Xavier Kumar MD (Electronically Signed) Final Date:09 January 2017 15:26
--- NOTE | 2017-01-09 20:48 | MG ---
cc: SHANI MESSINA MD Lab No: [id number] Date: 01/08/17 Age: 71 Sex: F Race: DATE OF 1945 With photic stimulation. Awake, drowsy, asleep study. CT no acute pathology. Admitted with unwitnessed fall, walking with her oxygen when she fell, found face down on the ground, incontinent, hypotensive. Blood pressure systolic in the 80s. She is a 71-year-old woman with a history of Alzheimer's, arthritis, schizoaffective disorder, some type of respiratory disorder. She is on oxygen. MEDICATIONS Aricept B12 Zoloft Seroquel Pravachol DESCRIPTION OF RECORD There is some mild slowing, 5-6 Hz background. EKG some questionable arrhythmia noted, maybe a PVC on occasion. A lot of artifact, but overall symmetrically slow background, no appreciable epileptiform features. Photic stimulation with a mild driving response seen. IMPRESSION Abnormal EEG due to background slowing likely due to an encephalopathic process but no significant findings in this recording to suggest a seizure or seizure like activity. Clinical correlation. MD RETA Blakely/ /8:14 PM /8:37 PM
[2017-01-10] VITALS (11 sets, daily range): BP systolic 112–145; BP diastolic 59–69; PULSE 50–67; RESP 12–18; TEMP 97.7–98.1; O2SAT 95–97
[2017-01-10] MEDS: INSULIN ASPART SUPPLEMENTAL SCALE SQ SCH (07:00)
[2017-01-10] MEDS ORDERED: PNEUMOCOCCAL POLYVALENT INJ 25 MCG/0.5 ML SYR IM ONE (10:00)
[2017-01-10] MEDS ORDERED: INFLUENZA VIRUS VACCINE (QUADRIVALENT) 0.5 ML SYR IM ONE (10:00)
--- NOTE | 2017-01-10 10:34 | HHI.PR ---
Subjective Remarks Follow-up for fall, syncope. The patient is awake and alert. She is not very cooperative with history. She states that she is fine and she denies any complaints. She does not answer when asked if she is had any problems with urination where she has any pain. Per nursing staff, has been eating well. Objective Vitals Vital Signs Date Time Temp Pulse Resp B/P (MAP) Pulse Ox O2 Delivery O2 Flow Rate FiO2 01/10/17 08:48 97.7 57 18 134/62 (86) 96 01/10/17 08:41 95 21 01/10/17 06:29 98.1 55 14 119/62 (81) 95 01/10/17 04:00 60 01/10/17 00:43 98.1 62 12 114/59 (77) 95 01/10/17 00:00 54 01/09/17 23:08 98.5 60 16 124/67 (86) 96 01/09/17 21:52 97 01/09/17 21:30 66 01/09/17 19:54 98.1 60 14 113/58 (76) 96 01/09/17 15:29 97.5 67 18 121/63 (82) 97 01/09/17 11:39 98.0 60 18 129/58 (81) 100 I/O 01/09/17 01/09/17 01/09/17 01/10/17 01/10/17 01/10/17 07:00 15:00 23:00 07:00 15:00 23:00 Intake Total 230 ml 100 ml Output Total 550 ml 375 ml Balance -320 ml 100 ml -375 ml Intake Oral 230 ml IV Total 100 ml Output Urine Total 550 ml 375 ml Result Diagram: 01/09/17 0501/09/17522 Imaging Last Impressions Head CT 01/08/171410 Signed Impressions: Service Date/Time: Sunday, January 08, 2017 15:12 - CONCLUSION: No acute intracranial injury Keaton Brooks MD Chest X-Ray 01/08/171410 Signed Impressions: Service Date/Time: Sunday, January 08, 2017 14:34 - CONCLUSION: No acute disease. Bebeto Sloan MD FACR Cervical Spine CT 01/08/171410 Signed Impressions: Service Date/Time: Sunday, January 08, 2017 15:12 - CONCLUSION: 1. Degenerative changes as detailed above with areas of neural foraminal narrowing and central canal narrowing. 2. No fracture or dislocation. Carlos Benitez Jr., MD Maxillofacial CT 01/08/17 0000 Signed Impressions: Service Date/Time: Sunday, January 08, 2017 15:12 - CONCLUSION: Negative for fracture. Bebeto Sloan MD FACR Carotid Artery Ultrasound 01/08/17 0000 Signed Impressions: Service Date/Time: Sunday, January 08, 2017 18:08 - CONCLUSION: Mild plaque of the carotid bulb regions without a hemodynamically significant stenosis seen. Keaton Mauro MD Objective Remarks GENERAL: Well-developed well-nourished. In no acute distress. SKIN: Warm and dry. Left brow laceration s/p repair with sutures. Chin with laceration s/p repair with suture x1. HEENT: Normocephalic. Pupils equal and round. Mucous membranes pink and moist. CARDIOVASCULAR: Regular rate and rhythm. No murmur appreciated. RESPIRATORY: No accessory muscle use. Clear to auscultation. Breath sounds equal bilaterally. GASTROINTESTINAL: Abdomen soft, non-tender, nondistended. Bowel sounds x4. MUSCULOSKELETAL: No obvious deformities. No clubbing or cyanosis. No edema. NEUROLOGICAL: Awake and alert. Moves upper and lower extremities spontaneously. Normal speech. PSYCHIATRIC: Calm and Savage of mood and affect; insight and judgment poor. Procedures 01/08 - Eyebrow and chin laceration repair in the ED A/P Problem List: (1) UTI (urinary tract infection) ICD Code: N39.0 - Urinary tract infection, site not specified Status: Acute (2) Syncope ICD Code: R55 - Syncope and collapse Status: Acute (3) Dementia ICD Code: F03.90 - Unspecified dementia without behavioral disturbance Status: Chronic (4) inability to care for self Status: Chronic Assessment and Plan 71-year-old female with history of dementia, HTN, HLD, DM, presents via [facility] due to unwitnessed fall. Patient is a poor historian and the history obtained from medical records and [facility] report. At this time patient is somnolent while assessed, minimal verbalization and questionable orientation. Facial lacerations noted that have been sutured by ED PA. Imaging studies unremarkable. UTI present. Syncope, Multiple facial lacerations secondary to fall: Suspect secondary to hypotension, BP in 90s/50s. Reviewed: Maxillofacial CT, head CT, CXR and C-spine CT unremarkable with degenerative changes noted on cervical spine CT. EKG showed first-degree AV block, rate 53. Troponin wnls. TSH, T4, Lipid panel wnl. CBC/BMP unremarkable. Carotid U/S unremarkable, no significant stenosis. Echocardiogram essentially unremarkable. EEG showed slowing likely due to encephalopathic process, but no seizure activity. - Continue cardiac telemetry. Patient sinus bradycardic with HR in 50's. - Facial lacerations sutured in ED by KARYN on 01/08, have removed in ~5days. Clean with NS, apply mupirocin ointment. - PT consulted, patient needs to return to SNF at discharge. Type 2 diabetes, chronic: Possibly over controlled with hemoglobin A1c 5.6. - Decrease metformin from 1000 to 500 mg daily. Urinary tract infection: Complex. - UA showed large amount of leukocyte esterase and innumerable WBCs. Urine culture growing resistant Morganella. - Continue IV Rocephin - Consult ID for assistance with antibiotics at discharge Dehydration: Creatinine 0.86 and BUN 21 at admission, improved to 0.63 and 14 respectively with IVF. Probably secondary to UTI. Likely contributed to syncope. - Improved. Hypertension, chronic: BP has been soft, possibly contributing to syncope. - Holding home BP meds, may need to discontinue. - BP is currently better controlled. Alzheimer's dementia, chronic: - Continue home Aricept. - Consider decreasing antipsychotics as outpatient with syncope and borderline bradycardia DVT Prophylaxis: SCDs. Patient high risk for falls, will hold chemical prophylaxis at this time. Discharge Planning Monitor BP. Follow up ID recommendations. Will go back to SNF for DC. Problem Qualifiers (1) UTI (urinary tract infection): Qualified Codes: N39.0 - Urinary tract infection, site not specified; R31.9 - Hematuria, unspecified (2) Syncope: Qualified Codes: R55 - Syncope and collapse (3) Dementia: [place] Jan 10, 2017 10:34
[2017-01-10] MEDS: DOCUSATE SODIUM 50 MG/SENNA 8.6 MG TAB PO SCH ×2 (10:37→20:38)
[2017-01-10] MEDS: PRAVASTATIN SOD 40 MG TAB PO SCH (10:37)
[2017-01-10] MEDS: LACTOBACILLUS ACIDOPHILUS TAB PO SCH ×3 (10:37→17:48)
[2017-01-10] MEDS: QUEtiapine FUMARATE 25 MG TAB PO SCH ×2 (10:37→20:38)
[2017-01-10] MEDS: SERTRALINE HCL 50 MG TAB PO SCH (10:38)
[2017-01-10] MEDS: CYANOCOBALAMIN 1,000 MCG TAB PO SCH (10:38)
[2017-01-10] MEDS: SODIUM CHLORIDE 0.9% FLUSH 10 ML FLUSH IV FLUSH SCH ×2 (10:42→20:41)
[2017-01-10] MEDS: DONEPEZIL HCL 5 MG TAB PO SCH (10:42)
[2017-01-10] MEDS: MUPIROCIN 2% OINT 22 GM TUBE TOPICAL SCH ×2 (10:44→20:37)
[2017-01-10] MEDS: cefTRIAXone INJ 1,000 MG in SODIUM CHLORIDE 0.9% INJ 100 ML IV SCH (14:41)
--- NOTE | 2017-01-10 20:52 | MB ---
cc: THELMA REEVES MD DATE OF CONSULTATION 01/10/[address] [place] REASON FOR CONSULTATION Complex UTI. HISTORY OF PRESENT ILLNESS This is a 71-year-old white female who fell and was brought to the emergency department for evaluation. The patient is a resident of [facility] [place]. She has a history of dementia. The patient does not interact but stares at me when I ask her questions. Occasionally she answers yes or no. Information could not be obtained from her and therefore information is obtained from the medical record. The patient had an episode of hypotension which was treated with fluids and improved. She appears to be alert and does not appear to be in any acute distress. She is afebrile. The urinalysis from 01/08 showed large amount of leukocyte esterase and innumerable white cells. Urine culture came back with Morganella 10-15,000 colonies. She has been started on ceftriaxone. She has a Fallon catheter in place and the urine is mostly clear with a little white sediment. White blood cell count is normal. Chest x-ray was performed and showed no acute disease. PAST MEDICAL HISTORY Alzheimer's dementia, arthritis, diabetes mellitus type 2, hypertension, dyslipidemia, sleep apnea. ALLERGIES NO KNOWN DRUG ALLERGIES. MEDICATIONS 1. Ceftriaxone. 2. Aricept. 3. Vitamin B12. 4. Zoloft. 5. Pravachol. 6. Lactinex. 7. Treasure-Colace. 8. Seroquel. SOCIAL HISTORY [facility] resident. No tobacco, alcohol or illicit drugs. FAMILY HISTORY Noncontributory. REVIEW OF SYSTEMS Difficult to obtain because the patient does not respond to questions asked in an appropriate way. PHYSICAL EXAMINATION GENERAL: This is a well-developed female in no acute distress. She is awake and she appears alert. I am unable to assess orientation. She is in no acute distress. VITAL SIGNS: Temperature 97.8, BP 112/63, respirations 16, heart rate 56. HEENT: The head has bruising at the upper brow area on both sides which has sutures. Extraocular movements grossly intact, pupils reactive to light. No icterus. No conjunctival erythema. Oropharynx mucosa appears moist. NECK: Supple. No swelling. LUNGS: Clear breath sounds. HEART: Regular rate and rhythm without murmurs, rubs or gallops. ABDOMEN: Bowel sounds present, soft, no tenderness appreciated. No masses palpable. RECTAL: Not performed. EXTREMITIES: No clubbing or cyanosis or edema. SKIN: No rash. NEURO: Unable to fully assess as the patient does not cooperate. PSYCH: Unable to fully assess. LABORATORY DATA WBC 6.2, platelet count 167, hemoglobin 11.4, creatinine 0.63, BUN 14, sodium 143. Urine culture Morganella 10-15,000 colonies. IMPRESSION 1. UTI due to Morganella. The patient is on ceftriaxone. The bacteria is resistant to ciprofloxacin and also Bactrim. 2. Status post fall. RECOMMENDATIONS Repeat the urine culture and follow it up to determine further antibiotic course. The patient has a Fallon catheter in place. If we can remove the Fallon catheter then I think we can discontinue the ceftriaxone since the colony count is less than 15,000 colonies and I think it is unlikely to persist without a Fallon catheter. If the Fallon catheter can be removed then the antibiotic can be stopped after the dose today and she can be transferred back [facility] the detention facility from infection standpoint. Thank you for this consultation. Please call infectious disease if further information is needed on this patient. Thelma Reeves MD FD/PALOMA /3:07 PM /8:34 PM
[2017-01-11] VITALS (8 sets, daily range): BP systolic 137–143; BP diastolic 60–63; PULSE 48–60; RESP 16–17; TEMP 97–97.9; O2SAT 93–97
[2017-01-11] MEDS ORDERED: METF500 PO (08:02)
[2017-01-11] MEDS ORDERED: MUPI2OIN TOPICAL (08:02)
--- NOTE | 2017-01-11 08:08 | HHI.DS ---
Discharge Summary Admission Date Jan 08, 2017 at 17:32 Discharge Date: Jan 11, 2017 Admitting Diagnosis syncope, UTI, facial lacerations (1) UTI (urinary tract infection) ICD Code: N39.0 - Urinary tract infection, site not specified Diagnosis: Secondary Status: Acute (2) Syncope ICD Code: R55 - Syncope and collapse Diagnosis: Principal Status: Acute (3) Dementia ICD Code: F03.90 - Unspecified dementia without behavioral disturbance Diagnosis: Secondary Status: Chronic (4) inability to care for self Diagnosis: Secondary Status: Chronic Procedures 01/08 - Eyebrow and chin laceration repair in the ED Brief History - From Admission Ms. Ugarte is a 71-year-old female with a known medical history of dementia, dyslipidemia, diabetes and hypertension who presented to the ED via [facility] due to unwitnessed fall. Patient is a poor historian and the history was obtained from medical records and [facility] report. Per ED report patient was supposedly belligerent and agitated with ED medical staff upon arrival and presented with underlying confusion with dementia. Patient sustained an unwitnessed fall while walking with [facility] personnel with apparent syncope and associated incontinence. Supposedly patient was hypotensive on arrival and status post 1L NS bolus with resolution of BP. At this time patient is somnolent while assessed, minimal verbalization and questionable orientation. Patient states her full name but will not verbalize year, place or situation. Apparent facial lacerations noted that have been sutured by ED PACandis CALL at this time. Imaging studies unremarkable. UTI present. EKG done with no ST changes indicating ischemia, sinus bradycardia with HR in the 50's. Patient was found to have urinary tract infection also. Noted to have some sinus bradycardia. We'll get echocardiograms carotids physical therapy and occupational therapy Will need placement back in SNF at discharge CBC/BMP: 01/09/17 0523 01/09/17 0523 Significant Findings Laboratory Tests Test 01/08/17 14:20 01/08/17 14:23 01/09/17 05:23 Red Blood Count 3.81 MIL/MM3 (4.00-5.30) 3.68 MIL/MM3 (4.00-5.30) Activated Partial Thromboplast Time 23.5 SEC (24.3-30.1) Blood Urea Nitrogen 21 MG/DL (7-18) Calcium Level 8.0 MG/DL (8.5-10.1) 8.3 MG/DL (8.5-10.1) Estimat Glomerular Filtration Rate 65 ML/MIN (>89) Troponin I LESS THAN 0.02 NG/ML Urine Turbidity HAZY (CLEAR) Urine Occult Blood TRACE (NEG) Urine Leukocyte Esterase LARGE (NEG) Urine RBC 15 /hpf (0-3) Urine Bacteria RARE /hpf (NONE) Urine Mucus FEW /lpf (OCC) Hemoglobin 11.4 GM/DL (11.6-15.3) Hematocrit 34.9 % (35.0-46.0) Imaging Last Impressions Head CT 01/08/171410 Signed Impressions: Service Date/Time: Sunday, January 08, 2017 15:12 - CONCLUSION: No acute intracranial injury Keaton Brooks MD Chest X-Ray 01/08/171410 Signed Impressions: Service Date/Time: Sunday, January 08, 2017 14:34 - CONCLUSION: No acute disease. Bebeto Sloan MD FACR Cervical Spine CT 01/08/171410 Signed Impressions: Service Date/Time: Sunday, January 08, 2017 15:12 - CONCLUSION: 1. Degenerative changes as detailed above with areas of neural foraminal narrowing and central canal narrowing. 2. No fracture or dislocation. Carlos Benitez Jr., MD Maxillofacial CT 01/08/17 0000 Signed Impressions: Service Date/Time: Sunday, January 08, 2017 15:12 - CONCLUSION: Negative for fracture. Bebeto Sloan MD FACR Carotid Artery Ultrasound 01/08/17 0000 Signed Impressions: Service Date/Time: Sunday, January 08, 2017 18:08 - CONCLUSION: Mild plaque of the carotid bulb regions without a hemodynamically significant stenosis seen. Keaton Mauro MD PE at Discharge GENERAL: Well-developed well-nourished. In no acute distress. SKIN: Warm and dry. Left brow laceration s/p repair with sutures. Chin with laceration s/p repair with suture. HEENT: Normocephalic. Pupils equal and round. Mucous membranes pink and moist. CARDIOVASCULAR: Regular rate and rhythm. No murmur appreciated. RESPIRATORY: No accessory muscle use. Clear to auscultation. Breath sounds equal bilaterally. GASTROINTESTINAL: Abdomen soft, non-tender, nondistended. Bowel sounds x4. MUSCULOSKELETAL: No obvious deformities. No clubbing or cyanosis. No edema. NEUROLOGICAL: Awake and alert. Moves upper and lower extremities spontaneously. Normal speech. PSYCHIATRIC: Calm and cooperative mood and affect; insight and judgment poor. Pt update on day of discharge No acute events overnight. Patient is doing well today with no acute complaints. Discussed with ID, recommended removing Fallon catheter placed in the ED and after third dose of IV ceftriaxone UTI should be treated and repeat cultures to be followed up as outpatient. Hospital Course 71-year-old female with history of dementia, HTN, HLD, DM, who presented from SNF due to unwitnessed fall. Syncope, Multiple facial lacerations secondary to fall: Suspect secondary to hypotension, BP in 90s/50s. Imaging/labs: Maxillofacial CT, head CT, CXR and C-spine CT unremarkable with degenerative changes noted on cervical spine CT. EKG showed first-degree AV block, rate 53. Troponin wnls. TSH, T4, Lipid panel wnl. CBC/BMP unremarkable. Carotid U/S unremarkable, no significant stenosis. Echocardiogram essentially unremarkable. EEG showed slowing likely due to encephalopathic process, but no seizure activity. Heart rate 50s. - Facial lacerations sutured in ED by KARYN on 01/08, have removed in ~5days. Clean with NS, apply mupirocin ointment. - PT consulted, patient needs to return to SNF at discharge. Type 2 diabetes, chronic: Possibly over controlled with hemoglobin A1c 5.6. - Decreased metformin from 1000 to 500 mg daily. Urinary tract infection: Complex. Urine culture grew resistant Morganella. - ID consulted, recommended 3 doses of IV Rocephin for treatment, and following up repeat urine culture UA showed large amount of leukocyte esterase and innumerable WBCs. - Received IV Rocephin x3 Dehydration: Creatinine 0.86 and BUN 21 at admission, improved to 0.63 and 14 respectively with IVF. Probably secondary to UTI. Likely contributed to syncope. - Improved. Hypertension, chronic: BP has been soft, possibly contributing to syncope. -Home BP meds were held and BP improved to normal limits off her medications. -Discontinued home BP meds Alzheimer's dementia, chronic: - Continue home Aricept. - Consider decreasing antipsychotics as outpatient with syncope and borderline bradycardia Pt Condition on Discharge: Stable Discharge Disposition: Discharge to SNF Discharge Time: > 30 minutes Discharge Instructions DIET: Follow Instructions for: Diabetic Diet Speech Therapy-Diet Recommends: Soft Activities you can perform: Regular-No Restrictions Follow up Referrals: PCP Follow-up - 2-3 Days New Medications: Metformin (Glucophage) 500 Mg Tab 500 MG PO DAILY for Blood Sugar Management, #30 TAB Mupirocin Topical (Mupirocin Topical) 2 % Oint 1 APPLIC TOPICAL Q12HR for wound care, #1 TUBE Continued Medications: Cyanocobalamin (B-12) 1 000 Cap 1000 MCG PO DAILY, CAP Donepezil Hydrochloride (Aricept) 5 Mg Tab 10 MG PO DAILY, TAB Haloperidol (Haldol) 1 Mg Tab 1 MG PO BID PRN for agitation, #10 TAB 0 Refills Lorazepam (Ativan 2 Mg Vial/Carpuject) 2 Mg/Ml Inj 0.5 MG IV Q8H PRN for ANXIETY, #20 INJECTION 0 Refills Lorazepam (Ativan) 0.5 Mg Tab 0.5 MG PO BID PRN for agitation, #20 TAB 0 Refills Probiotic Product (Probiotic Acidophilus) 12.9 Mg (2 Billion Cell) Cap 1 TAB PO TIDAC for 7 Days, CAP Quetiapine Fumarate (Quetiapine Fumarate) 25 Mg Tab 25 MG PO BID for agitation, #30 TAB 0 Refills Sertraline 25 mg (Sertraline 25 mg) 25 Mg Tab 1 TAB PO DAILY, TAB Simvastatin 20 mg tab (Zocor) 20 Mg Tab 20 MG PO DAILY Discontinued Medications: Benazepril 20 mg (Lotensin 20 mg) 20 Mg Tab 1 TAB PO DAILY, TAB Metformin ER 24 HR (Metformin ER 24 HR) 1,000 Mg Tab 1000 MG PO DAILY [place] Jan 11, 2017 08:08
[2017-01-11] MEDS: LACTOBACILLUS ACIDOPHILUS TAB PO SCH ×2 (08:51→12:00)
[2017-01-11] MEDS: SODIUM CHLORIDE 0.9% FLUSH 10 ML FLUSH IV FLUSH SCH (08:52)
[2017-01-11] MEDS: CYANOCOBALAMIN 1,000 MCG TAB PO SCH (08:52)
[2017-01-11] MEDS: DONEPEZIL HCL 5 MG TAB PO SCH (08:52)
[2017-01-11] MEDS: SERTRALINE HCL 50 MG TAB PO SCH (08:53)
[2017-01-11] MEDS: DOCUSATE SODIUM 50 MG/SENNA 8.6 MG TAB PO SCH (08:53)
[2017-01-11] MEDS: QUEtiapine FUMARATE 25 MG TAB PO SCH (08:53)
[2017-01-11] MEDS: PRAVASTATIN SOD 40 MG TAB PO SCH (08:56)
[2017-01-11] MEDS: MUPIROCIN 2% OINT 22 GM TUBE TOPICAL SCH (08:57)
[2017-01-11] MEDS ORDERED: metFORMIN HCL 500 MG TAB PO SCH (09:00)
== END 2017-01-11 13:12 | disposition home or self-care (01) ==
LOC: NEPE 14:01 → NEDA 17:32 → NEPGCP 20:08 → NEDA 01-09 02:13 → NEPGCP 01-09 02:13
PROVIDERS: ADMIT Family Medicine; ATTEND Family Medicine
DX: R55 Syncope and collapse (principal); N39.0 Urinary tract infection, site not specified; B96.89 Other specified bacterial agents as the cause of diseases classified elsewhere; S01.81XA Laceration without foreign body of other part of head, initial encounter; E86.0 Dehydration; F02.80 Dementia in other diseases classified elsewhere, unspecified severity, without behavioral disturbance, psychotic disturbance, mood disturbance, and anxiety; G30.9 Alzheimer's disease, unspecified; E11.9 Type 2 diabetes mellitus without complications; I10 Essential (primary) hypertension; R94.31 Abnormal electrocardiogram [ECG] [EKG]; E78.00 Pure hypercholesterolemia, unspecified; G47.30 Sleep apnea, unspecified; Z23 Encounter for immunization; Z79.84 Long term (current) use of oral hypoglycemic drugs; W18.30XA Fall on same level, unspecified, initial encounter; Y93.01 Activity, walking, marching and hiking; Z16.23 Resistance to quinolones and fluoroquinolones
CPT/HCPCS: 12014; 70450; 70486; 71010; 72125; 80048; 80061; 81001; 82550; 82552; 82607; 82948; 83036; 83735; 84439; 84443; 84484; 85025; 85610; 85730; 87077; 87086; 87186; 90732; 92526; 92610; 93005; 93306; 93880; 95819; 96365; 96366; 96376; 97163; 97167; 97530; 99285; G0378; G8987; G8988; G8996; G8997; G8998; J0696; 90471; G0009

== ENCOUNTER 2017-07-02 17:15 | Emergency (ER) | payer MEDICAID, MEDICARE ==
[~2017-07-02 17:15] MED LIST changes: -BENA20 PO; -METF-324 PO; +METF500 PO; +MUPI2OIN TOPICAL
[2017-07-02 17:19] VITALS: BP 121/73; PULSE 63; RESP 18; TEMP 97.8; O2SAT 96
[2017-07-02] MEDS ORDERED: FURO1TAB60 PO (17:36)
[2017-07-02] MEDS ORDERED: LACT1CAP20 (17:36)
[2017-07-02] MEDS ORDERED: SERT25TA83 PO (17:36)
[2017-07-02] MEDS ORDERED: VALP250 PO (17:36)
[2017-07-02] MEDS ORDERED: VITA10002 PO (17:36)
[2017-07-02] MEDS ORDERED: ATOR10TA15 PO (17:36)
[2017-07-02] MEDS ORDERED: TYLE325T PO (17:36)
[2017-07-02] MEDS ORDERED: DONE10TA7 PO (17:36)
--- NOTE | 2017-07-02 18:28 | PD ---
HPI Chief Complaint: Fall Time Seen by Provider: 18:21 Travel History International Travel<30 days: No Contact w/Intl Traveler<30days: No Traveled to known affect area: No History of Present Illness HPI 71-year-old female with PMH of dementia presents to the ED via EMS after a witnessed trip and fall at her [facility]. On presentation the patient states that she tripped over something. She complains of pain in the head and neck. She endorses blurred vision and dizziness. Patient is unsure of what date of her last tetanus immunization. She is unsure if she takes blood thinners. She denies chest pain, shortness of breath, abdominal pain, nausea, vomiting. She is unsure if she's been ambulatory since the accident. She is unable to provide any more meaningful history. PFSH Past Medical History Alzheimer's Disease: Yes Arthritis: Yes Cardiovascular Problems: Yes High Cholesterol: Yes Dementia: Yes Diabetes: Yes Patient Takes Glucophage: No Genitourinary: No Hypertension: Yes Musculoskeletal: Yes Neurologic: No Respiratory: Yes Integumentary: Yes (HX OF CELLULITIS) Sleep Apnea: Yes ?: Not Past Surgical History Surgical History: No Previous Surgery Other Surgery: No Social History Alcohol Use: No Tobacco Use: No Substance Use: Yes Allergies-Medications (Allergen,Severity, Reaction): Coded Allergies: No Known Allergies (Verified , 01/15/16) Reported Meds & Prescriptions Reported Meds & Active Scripts Active Glucophage (Metformin HCl) 500 Mg Tab 500 Mg PO DAILY Reported Atorvastatin (Atorvastatin Calcium) 10 Mg Tab 10 Mg PO HS Tylenol (Acetaminophen) 325 Mg Tab 650 Mg PO Q4H PRN Donepezil 10 Mg Tab 10 Mg PO HS Vitamin B-12 (Cyanocobalamin) 1,000 Mcg Tab 1,000 Mcg PO DAILY Lasix (Furosemide) 40 Mg Tab 40 Mg PO DAILY Sertraline (Sertraline HCl) 25 Mg Tab 25 Mg PO DAILY Depakene (Valproic Acid) 250 Mg Cap 250 Mg PO BID Acidophilus Lactobacillus (Lactobacillus Acidophilus) 1 Each Capsule Review of Systems Except as stated in HPI: all other systems reviewed are Neg Physical Exam Exam Limitations: Other: (exam performed in the ambulance call) Narrative GENERAL: Well-nourished, well-developed elderly white female in no acute distress.. SKIN: Focused skin assessment warm/dry. Large laceration on the right forehead. HEAD: Normocephalic. EYES: No scleral icterus. No injection or drainage. NECK: Supple, trachea midline. No JVD or lymphadenopathy. CARDIOVASCULAR: Regular rate and rhythm without murmurs, gallops, or rubs. RESPIRATORY: Breath sounds clear and equal bilaterally. No accessory muscle use. GASTROINTESTINAL: Abdomen soft, non-tender, nondistended. Active bowel sounds. MUSCULOSKELETAL: No cyanosis, or edema. NEUROLOGICAL: Answers questions appropriately. Somnolent but arouses easily to voice. Motor and sensory grossly within normal limits. 4/5 muscle strength in all muscle groups. Normal speech. BACK: Nontender without obvious deformity. No CVA tenderness. Data Data Last Documented VS Vital Signs Date Time Temp Pulse Resp B/P (MAP) Pulse Ox O2 Delivery O2 Flow Rate FiO2 07/02/17 17:19 97.8 63 18 121/73 (89) [address] Brain W/O Iv Contrast(Rout) (07/02/17 ) Lidocaine 1% Inj (Xylocaine 1% Inj) (07/02/17 18:30) Acetaminophen (Tylenol) (07/02/17 18:30) Tetanus/Diphtheria Tox Adult (Tetanus/Di (07/02/17 18:30) Ct Cerv Spine W/O Contrast (07/02/17 ) Shoulder, Limited(2vws) (07/02/17 ) Complete Blood Count With Diff (07/02/17 19:48) Comprehensive Metabolic Panel (07/02/17 19:48) Urinalysis - C+S If Indicated (07/02/17 19:48) Cath For Specimen (07/02/17 19:48) Lidocaine 1% Inj (Xylocaine 1% Inj) (07/02/17 20:15) Labs Laboratory Tests Test 07/02/17 20:00 White Blood Count 8.7 TH/MM3 Red Blood Count 3.98 MIL/MM3 Hemoglobin 12.1 GM/DL Hematocrit 35.9 % Mean Corpuscular Volume 90.2 FL Mean Corpuscular Hemoglobin 30.4 PG Mean Corpuscular Hemoglobin Concent 33.7 % Red Cell Distribution Width 14.9 % Platelet Count 246 TH/MM3 Mean Platelet Volume 8.2 FL Neutrophils (%) (Auto) 65.9 % Lymphocytes (%) (Auto) 24.7 % Monocytes (%) (Auto) 7.2 % Eosinophils (%) (Auto) 1.8 % Basophils (%) (Auto) 0.4 % Neutrophils # (Auto) 5.8 TH/MM3 Lymphocytes # (Auto) 2.2 TH/MM3 Monocytes # (Auto) 0.6 TH/MM3 Eosinophils # (Auto) 0.2 TH/MM3 Basophils # (Auto) 0.0 TH/MM3 CBC Comment DIFF FINAL Differential Comment Blood Urea Nitrogen 27 MG/DL Creatinine 0.90 MG/DL Random Glucose 121 MG/DL Total Protein 6.6 GM/DL Albumin 3.2 GM/DL Calcium Level 8.8 MG/DL Alkaline Phosphatase 58 U/L Aspartate Amino Transf (AST/SGOT) 21 U/L Alanine Aminotransferase (ALT/SGPT) 20 U/L Total Bilirubin 0.3 MG/DL Sodium Level 144 MEQ/L Potassium Level 4.1 MEQ/L Chloride Level 105 MEQ/L Carbon Dioxide Level 32.4 MEQ/L Anion Gap 7 MEQ/L Estimat Glomerular Filtration Rate 62 ML/MIN MDM Medical Decision Making Medical Screen Exam Complete: Yes Emergency Medical Condition: Yes Differential Diagnosis Fall from standing versus laceration versus need for tetanus immunization versus ICH versus cervical spinal fracture versus subluxation versus other Narrative Course 71-year-old female with PMH of dementia presents to the ED via EMS after a witnessed trip and fall at her [facility]. On presentation the patient states that she tripped over something. She complains of pain in the head and neck. She endorses blurred vision and dizziness. Patient is unsure of what date of her last tetanus immunization. She is unsure if she takes blood thinners. She is unsure if she's been ambulatory since the accident. She is unable to provide any more meaningful history. Vitals reviewed. On exam patient somnolent but arouses easily to voice. She endorses pain in the head and neck. She has a laceration over the right eyebrow. No focal neuro deficits. Strength is equal bilaterally. CT head and neck ordered and pending. Patient was seen in the ambulance fall, she is awaiting medical bed placement. Please see oncoming provider's note for disposition. Cielo Leal Jul 02, 2017 18:28
[2017-07-02] MEDS ORDERED: LIDOCAINE HCL 1% 30 ML VIAL INFIL ONE (18:30)
[2017-07-02] MEDS ORDERED: ACETAMINOPHEN 325 MG TAB PO ONE (18:30)
[2017-07-02] MEDS ORDERED: TETANUS/DIPHTHERIA TOXOID ADULT 0.5 ML VIAL IM ONE (18:30)
--- NOTE | 2017-07-02 19:42 | RADRPT ---
EXAM DATE/TIME: 07/02/2017 19:10 [facility] COMPARISON: CT BRAIN W/O CONTRAST, January 08, 2017, 15:12. INDICATIONS : Trauma. Fall. RADIATION DOSE: 53.61 CTDIvol (mGy) MEDICAL HISTORY : Dementia. Alzheimer's. Hypertension.Diabetes SURGICAL HISTORY : None. ENCOUNTER: Initial ACUITY: 1 day PAIN SCALE: 5/10 LOCATION: cranial TECHNIQUE: Multiple contiguous axial images were obtained of the head. Using automated exposure control and adj ustment of the mA and/or kV according to patient size, radiation dose was kept as low as reasonably a chievable to obtain optimal diagnostic quality images. DICOM format image data is available electro nically for review and comparison. FINDINGS: The study is moderately degraded by patient motion. Grossly, the ventricles are symmetric and normal. There is no definite evidence of mass or hemorrhage . There is nothing to suggest acute infarction. There is a right frontal scalp laceration without def inite skull fracture. CONCLUSION: Motion degraded exam grossly negative for acute intracranial injury Keaton Brooks MD on July 02, 2017 at 19:39 Board Certified Radiologist. This report was verified electronically.
--- NOTE | 2017-07-02 19:48 | PD ---
Physical Exam Date Seen by Provider: Jul 02, 2017 Time Seen by Provider: 19:46 Narrative The patient is a 71-year-old female who was initially evaluated by the mid- level provider. Please refer to the initial history, physical, diagnostic evaluation, and treatment modality plan. Data Data Last Documented VS Vital Signs Date Time Temp Pulse Resp B/P (MAP) Pulse Ox O2 Delivery O2 Flow Rate FiO2 07/02/17 23:44 70 16 117/89 (98) 98 Room Air 07/02/17 17:[address] Brain W/O Iv Contrast(Rout) (07/02/17 ) Lidocaine 1% Inj (Xylocaine 1% Inj) (07/02/17 18:30) Acetaminophen (Tylenol) (07/02/17 18:30) Tetanus/Diphtheria Tox Adult (Tetanus/Di (07/02/17 18:30) Ct Cerv Spine W/O Contrast (07/02/17 ) Shoulder, Limited(2vws) (07/02/17 ) Complete Blood Count With Diff (07/02/17 19:48) Comprehensive Metabolic Panel (07/02/17 19:48) Urinalysis - C+S If Indicated (07/02/17 19:48) Cath For Specimen (07/02/17 19:48) Lidocaine 1% Inj (Xylocaine 1% Inj) (07/02/17 20:15) Lorazepam Inj (Ativan Inj) (07/02/17 22:15) Labs Laboratory Tests Test 07/02/17 20:00 07/02/17 22:00 White Blood Count 8.7 TH/MM3 Red Blood Count 3.98 MIL/MM3 Hemoglobin 12.1 GM/DL Hematocrit 35.9 % Mean Corpuscular Volume 90.2 FL Mean Corpuscular Hemoglobin 30.4 PG Mean Corpuscular Hemoglobin Concent 33.7 % Red Cell Distribution Width 14.9 % Platelet Count 246 TH/MM3 Mean Platelet Volume 8.2 FL Neutrophils (%) (Auto) 65.9 % Lymphocytes (%) (Auto) 24.7 % Monocytes (%) (Auto) 7.2 % Eosinophils (%) (Auto) 1.8 % Basophils (%) (Auto) 0.4 % Neutrophils # (Auto) 5.8 TH/MM3 Lymphocytes # (Auto) 2.2 TH/MM3 Monocytes # (Auto) 0.6 TH/MM3 Eosinophils # (Auto) 0.2 TH/MM3 Basophils # (Auto) 0.0 TH/MM3 CBC Comment DIFF FINAL Differential Comment Blood Urea Nitrogen 27 MG/DL Creatinine 0.90 MG/DL Random Glucose 121 MG/DL Total Protein 6.6 GM/DL Albumin 3.2 GM/DL Calcium Level 8.8 MG/DL Alkaline Phosphatase 58 U/L Aspartate Amino Transf (AST/SGOT) 21 U/L Alanine Aminotransferase (ALT/SGPT) 20 U/L Total Bilirubin 0.3 MG/DL Sodium Level 144 MEQ/L Potassium Level 4.1 MEQ/L Chloride Level 105 MEQ/L Carbon Dioxide Level 32.4 MEQ/L Anion Gap 7 MEQ/L Estimat Glomerular Filtration Rate 62 ML/MIN Urine Color LIGHT-YELLOW Urine Turbidity CLEAR Urine pH 7.0 Urine Specific [place] 1.015 Urine Protein NEG mg/dL Urine Glucose (UA) NEG mg/dL Urine Ketones NEG mg/dL Urine Occult Blood NEG Urine Nitrite NEG Urine Bilirubin NEG Urine Urobilinogen LESS THAN 2.0 MG/DL Urine Leukocyte Esterase NEG Urine RBC LESS THAN 1 /hpf Urine WBC 1 /hpf Urine Squamous Epithelial Cells 1 /hpf Urine Hyaline Casts 4 /lpf Urine Mucus FEW /lpf Microscopic Urinalysis Comment CATH-CULT NOT IND MDM Medical Record Reviewed: Yes Supervised Visit with JAMES: Yes Interpretation(s) Last Impressions Shoulder X-Ray 07/02/17 0000 Signed Impressions: Service Date/Time: Sunday, July 02, 2017 20:06 - CONCLUSION: Superior humeral head subluxation, likely associated with rotator cuff tear. Keaton Brooks MD Head CT 07/02/17 0000 Signed Impressions: Service Date/Time: Sunday, July 02, 2017 19:10 - CONCLUSION: Motion degraded exam grossly negative for acute intracranial injury Keaton Brooks MD Cervical Spine CT 07/02/17 0000 Signed Impressions: Service Date/Time: Sunday, July 02, 2017 19:10 - CONCLUSION: Prominent degenerative changes. No evidence of acute bony injury. Keaton Brooks MD Laboratory Tests Test 07/02/17 20:00 07/02/17 22:00 White Blood Count 8.7 TH/MM3 Red Blood Count 3.98 MIL/MM3 Hemoglobin 12.1 GM/DL Hematocrit 35.9 % Mean Corpuscular Volume 90.2 FL Mean Corpuscular Hemoglobin 30.4 PG Mean Corpuscular Hemoglobin Concent 33.7 % Red Cell Distribution Width 14.9 % Platelet Count 246 TH/MM3 Mean Platelet Volume 8.2 FL Neutrophils (%) (Auto) 65.9 % Lymphocytes (%) (Auto) 24.7 % Monocytes (%) (Auto) 7.2 % Eosinophils (%) (Auto) 1.8 % Basophils (%) (Auto) 0.4 % Neutrophils # (Auto) 5.8 TH/MM3 Lymphocytes # (Auto) 2.2 TH/MM3 Monocytes # (Auto) 0.6 TH/MM3 Eosinophils # (Auto) 0.2 TH/MM3 Basophils # (Auto) 0.0 TH/MM3 CBC Comment DIFF FINAL Differential Comment Blood Urea Nitrogen 27 MG/DL Creatinine 0.90 MG/DL Random Glucose 121 MG/DL Total Protein 6.6 GM/DL Albumin 3.2 GM/DL Calcium Level 8.8 MG/DL Alkaline Phosphatase 58 U/L Aspartate Amino Transf (AST/SGOT) 21 U/L Alanine Aminotransferase (ALT/SGPT) 20 U/L Total Bilirubin 0.3 MG/DL Sodium Level 144 MEQ/L Potassium Level 4.1 MEQ/L Chloride Level 105 MEQ/L Carbon Dioxide Level 32.4 MEQ/L Anion Gap 7 MEQ/L Estimat Glomerular Filtration Rate 62 ML/MIN Urine Color LIGHT-YELLOW Urine Turbidity CLEAR Urine pH 7.0 Urine Specific [place] 1.015 Urine Protein NEG mg/dL Urine Glucose (UA) NEG mg/dL Urine Ketones NEG mg/dL Urine Occult Blood NEG Urine Nitrite NEG Urine Bilirubin NEG Urine Urobilinogen LESS THAN 2.0 MG/DL Urine Leukocyte Esterase NEG Urine RBC LESS THAN 1 /hpf Urine WBC 1 /hpf Urine Squamous Epithelial Cells 1 /hpf Urine Hyaline Casts 4 /lpf Urine Mucus FEW /lpf Microscopic Urinalysis Comment CATH-CULT NOT IND Differential Diagnosis Differential diagnosis includes mechanical fall, syncope, closed head injury, intracranial hemorrhage, skull fracture, cervical fracture, shoulder fracture, dislocation, contusion, hematoma. Narrative Course The patient was initially evaluated by the mid-level provider, please refer to the initial history, physical, diagnostic evaluation, treatment modality plan. I personally examined the patient in room [facility] 36, the patient has a laceration to the forehead which is jagged. Pupils are 3 mm bilaterally and reactive. Patient is oriented to name but not place, month, year, or learning strategist. She has an obvious deformity to the right shoulder, appears old. She has mild edema to lower extremities. Laceration was repaired by the mid-level provider. Please refer to the procedure note. CT of the brain and cervical spine were obtained. X-ray right shoulder was obtained. CBC , CMP, UA were sent to lab. X-ray of the right shoulder reveals subluxation most likely from rotator cuff injury, chronic. Labs are unremarkable. Patient will be transferred back to the care home. Diagnosis Primary Impression: Laceration of forehead Qualified Codes: S01.81XA - Laceration without foreign body of other part of head, initial encounter Additional Impression: Closed head injury Qualified Codes: S09.90XA - Unspecified injury of head, initial encounter Patient Instructions: General Instructions Additional Instruction: Suture removal in 5-7 days. Polysporin twice a day. Please provide the patient a copy of her CT results and lab results at discharge. Transfer back to care home. Disposition: 03 DISCHARGE TO SNF (Transfer back to care home) Condition: Stable Buster Valencia MD Jul 02, 2017 19:48
[2017-07-02] MEDS ORDERED: LIDOCAINE HCL 1% 20 ML VIAL INFIL ONE (20:15)
[2017-07-02 20:41] LABS: ALBUMIN 3.2 GM/DL (3.4-5.0); AST (GOT) 21 U/L (15-37); BICARBONATE 32.4 MEQ/L (21.0-32.0); BLOOD UREA NITROGEN 27 MG/DL (7-18); CALCIUM 8.8 MG/DL (8.5-10.1); CHLORIDE 105 MEQ/L (98-107); GLOMERULAR FILTRATION RATE 62 ML/MIN (>89); GLUCOSE,RANDOM 121 MG/DL (74-106); SODIUM (NA) 144 MEQ/L (136-145)
[2017-07-02 20:42] LABS: ALT (GPT) 20 U/L (10-53)
[2017-07-02 20:44] LABS: ALKALINE PHOSPHATASE 58 U/L (45-117); AUTOMATED NEUTROPHIL # 5.8 TH/MM3 (1.8-7.7); BASOPHIL % 0.4 % (0.0-2.0); EOSINOPHIL # 0.2 TH/MM3 (0-0.4); EOSINOPHIL % 1.8 % (0.0-4.0); HEMATOCRIT 35.9 % (35.0-46.0); HEMOGLOBIN 12.1 GM/DL (11.6-15.3); LYMPH % 24.7 % (9.0-44.0); LYMPHOCYTE # 2.2 TH/MM3 (1.0-4.8); MEAN CELL VOLUME 90.2 FL (80.0-100.0); MEAN CORPUSCULAR HEMOGLOBIN 30.4 PG (27.0-34.0); MEAN CORPUSCULAR HGB CONC 33.7 % (32.0-36.0); MEAN PLATELET VOLUME 8.2 FL (7.0-11.0); MONO % 7.2 % (0.0-8.0); MONOCYTE # 0.6 TH/MM3 (0-0.9); NEUT % 65.9 % (16.0-70.0); PLATELET COUNT 246 TH/MM3 (150-450); RED BLOOD COUNT 3.98 MIL/MM3 (4.00-5.30); RED CELL DISTRIBUTION WIDTH 14.9 % (11.6-17.2); TOTAL BILIRUBIN ADULT 0.3 MG/DL (0.2-1.0); TOTAL PROTEIN 6.6 GM/DL (6.4-8.2); WHITE BLOOD COUNT 8.7 TH/MM3 (4.0-11.0)
--- NOTE | 2017-07-02 20:54 | RADRPT ---
EXAM DATE/TIME: 07/02/2017 19:10 [facility] COMPARISON: No previous studies available for comparison. INDICATIONS : Trauma. Fall. RADIATION DOSE: 42.71 CTDIvol (mGy) MEDICAL HISTORY : Dementia. Alzheimer's. Hypertension.Diabetes SURGICAL HISTORY : None. ENCOUNTER: Initial ACUITY: 1 day PAIN SCALE: 5/10 LOCATION: neck TECHNIQUE: Volumetric scanning of the cervical spine was performed. Multiplanar reconstructions in the sagittal, coronal and oblique axial planes were performed. Using automated exposure control and adjustment o f the mA and/or kV according to patient size, radiation dose was kept as low as reasonably achievable to obtain optimal diagnostic quality images. DICOM format image data is available electronically f or review and comparison. FINDINGS: There is slight reversal of normal cervical lordosis. There is minimal anterolisthesis of C3 relative to C4 aerated there degenerative changes throughout with disc space narrowing and endplate osteophyt es most significantly at C6-7. No evidence of cervical spine fracture. No significant bony canal comp romise. There is severe arthritic change in posterior facet joints. There is no evidence of paraspina l hematoma. CONCLUSION: Prominent degenerative changes. No evidence of acute bony injury. Keaton Brooks MD on July 02, 2017 at 20:51 Board Certified Radiologist. This report was verified electronically.
--- NOTE | 2017-07-02 21:34 | PD ---
Physical Exam Date Seen by Provider: Jul 02, 2017 Narrative I was asked to repair a laceration of the left forehead and eyebrow. LACERATION LOCATION: Right brow and forehead, T-shaped along the eyebrow LENGTH: 2-3 cm NUMBER OF STITCHES/CAMERON: 6 sutures, Steri-Strips, Dermabond REPAIR: The area of the laceration was prepped with Betadine and sterilely draped. The laceration was infiltrated with 1% lidocaine. The wound was copiously irrigated and explored without evidence of foreign body, tendon injury or neurovascular injury. Multiple eyebrow hairs and skin was removed from the laceration. The wound was closed using 5-0 prolene. This was a single layer repair. A sterile dressing was applied. The patient was advised to keep the dressing clean and dry. Patient tolerated the procedure poorly. Required assistance of the nurse to hold the head still. Patient was rather vulgar during the procedure. Data Data Last Documented VS Vital Signs Date Time Temp Pulse Resp B/P (MAP) Pulse Ox O2 Delivery O2 Flow Rate FiO2 07/03/17 08:57 07/03/17 06:38 59 16 90 Room Air 07/02/17 17:[address] Brain W/O Iv Contrast(Rout) (07/02/17 ) Lidocaine 1% Inj (Xylocaine 1% Inj) (07/02/17 18:30) Acetaminophen (Tylenol) (07/02/17 18:30) Tetanus/Diphtheria Tox Adult (Tetanus/Di (07/02/17 18:30) Ct Cerv Spine W/O Contrast (07/02/17 ) Shoulder, Limited(2vws) (07/02/17 ) Complete Blood Count With Diff (07/02/17 19:48) Comprehensive Metabolic Panel (07/02/17 19:48) Urinalysis - C+S If Indicated (07/02/17 19:48) Cath For Specimen (07/02/17 19:48) Lidocaine 1% Inj (Xylocaine 1% Inj) (07/02/17 20:15) Lorazepam Inj (Ativan Inj) (07/02/17 22:15) Ed Discharge Order (07/02/17 23:54) Labs Laboratory Tests Test 07/02/17 20:00 07/02/17 22:00 White Blood Count 8.7 TH/MM3 Red Blood Count 3.98 MIL/MM3 Hemoglobin 12.1 GM/DL Hematocrit 35.9 % Mean Corpuscular Volume 90.2 FL Mean Corpuscular Hemoglobin 30.4 PG Mean Corpuscular Hemoglobin Concent 33.7 % Red Cell Distribution Width 14.9 % Platelet Count 246 TH/MM3 Mean Platelet Volume 8.2 FL Neutrophils (%) (Auto) 65.9 % Lymphocytes (%) (Auto) 24.7 % Monocytes (%) (Auto) 7.2 % Eosinophils (%) (Auto) 1.8 % Basophils (%) (Auto) 0.4 % Neutrophils # (Auto) 5.8 TH/MM3 Lymphocytes # (Auto) 2.2 TH/MM3 Monocytes # (Auto) 0.6 TH/MM3 Eosinophils # (Auto) 0.2 TH/MM3 Basophils # (Auto) 0.0 TH/MM3 CBC Comment DIFF FINAL Differential Comment Blood Urea Nitrogen 27 MG/DL Creatinine 0.90 MG/DL Random Glucose 121 MG/DL Total Protein 6.6 GM/DL Albumin 3.2 GM/DL Calcium Level 8.8 MG/DL Alkaline Phosphatase 58 U/L Aspartate Amino Transf (AST/SGOT) 21 U/L Alanine Aminotransferase (ALT/SGPT) 20 U/L Total Bilirubin 0.3 MG/DL Sodium Level 144 MEQ/L Potassium Level 4.1 MEQ/L Chloride Level 105 MEQ/L Carbon Dioxide Level 32.4 MEQ/L Anion Gap 7 MEQ/L Estimat Glomerular Filtration Rate 62 ML/MIN Urine Color LIGHT-YELLOW Urine Turbidity CLEAR Urine pH 7.0 Urine Specific [place] 1.015 Urine Protein NEG mg/dL Urine Glucose (UA) NEG mg/dL Urine Ketones NEG mg/dL Urine Occult Blood NEG Urine Nitrite NEG Urine Bilirubin NEG Urine Urobilinogen LESS THAN 2.0 MG/DL Urine Leukocyte Esterase NEG Urine RBC LESS THAN 1 /hpf Urine WBC 1 /hpf Urine Squamous Epithelial Cells 1 /hpf Urine Hyaline Casts 4 /lpf Urine Mucus FEW /lpf Microscopic Urinalysis Comment CATH-CULT NOT IND MDM Supervised Visit with JAMES: No Condition: Stable Stephanie Garcia Jul 02, 2017 21:34
--- NOTE | 2017-07-02 21:34 | RADRPT ---
EXAM DATE/TIME: 07/02/2017 20:06 [facility] COMPARISON: No previous studies available for comparison. INDICATIONS : Right shoulder deformity after fall. MEDICAL HISTORY : Hypertension. Diabetes. Alzheimer's. dementia. SURGICAL HISTORY : None. ENCOUNTER: Initial ACUITY: 1 day PAIN SCORE: 6/10 LOCATION: Right shoulder FINDINGS: There is superior subluxation of the humeral head relative to the bony glenoid which would be most co nsistent with rotator cuff disruption. There is no evidence of fracture. There is mild arthritic rubio ge present. The adjacent clavicle and ribs appear intact. CONCLUSION: Superior humeral head subluxation, likely associated with rotator cuff tear. Keaton Brooks MD on July 02, 2017 at 21:31 Board Certified Radiologist. This report was verified electronically.
[2017-07-02] MEDS ORDERED: LORazepam 2 MG/ML VIAL IV PUSH ONE (22:15)
[2017-07-02 22:44] LABS: BILIRUBIN, URINE NEG (NEG); BLOOD, URINE NEG (NEG); GLUCOSE,URINE NEG (NEG); HYALINE CAST, URINE 4 /lpf (RARE); KETONE, URINE NEG (NEG); MUCUS URINE FEW /lpf (OCC); NITRITE,URINE NEG (NEG); SQUAMOUS EPITHELIAL CELL URINE 1 /hpf (0-5); URINE COLOR LIGHT-YELLOW (YELLW/STRAW); URINE LEUKOCYTE ESTERASE NEG (NEG)
[2017-07-02 23:44] VITALS: BP 117/89; PULSE 70; RESP 16; O2SAT 98
[2017-07-03 06:38] VITALS: BP 145/74; PULSE 59; RESP 16; O2SAT 90
== END 2017-07-03 09:32 ==
LOC: NEPC 17:15
DX: S01.81XA Laceration without foreign body of other part of head, initial encounter (principal); S09.90XA Unspecified injury of head, initial encounter; G30.9 Alzheimer's disease, unspecified; F02.80 Dementia in other diseases classified elsewhere, unspecified severity, without behavioral disturbance, psychotic disturbance, mood disturbance, and anxiety; E11.9 Type 2 diabetes mellitus without complications; E78.00 Pure hypercholesterolemia, unspecified; I10 Essential (primary) hypertension; W01.0XXA Fall on same level from slipping, tripping and stumbling without subsequent striking against object, initial encounter; Y92.099 Unspecified place in other non-institutional residence as the place of occurrence of the external cause; Z23 Encounter for immunization; Z79.84 Long term (current) use of oral hypoglycemic drugs
CPT/HCPCS: 12011; 70450; 72125; 73030; 80053; 81001; 85025; 90471; 90714; 96374; 99284; J2060; P9612